=== PATIENT | female | born 1955 | race Caucasian/White ===

== ENCOUNTER 2021-05-02 11:20 | Outpatient (REF) | payer MEDICARE, MEDICAID, SELFPAY ==
[2021-05-02 13:58] LABS: MANUAL DIFF FLAG NO
[2021-05-02 14:01] LABS: Basophils Percent Auto 0.6 % (0-2); Eosinophils Absolute Auto 0.1 X10*3/uL (0.0-0.4); Eosinophils Percent Auto 1.9 % (0-4); Hematocrit 38.4 % (37.0-47.0); Hemoglobin 12.5 g/dl (12.0-16.0); Imm Gran Abs Auto 0.01 X10*3/uL (0.00-0.03); Imm Gran Pct Auto 0.1 % (0.0-0.4); Lymphocytes Absolute Auto 1.3 X10*3/uL (1.2-4.9); Lymphocytes Percent Auto 19.3 % (20-40); Mean Corpuscular HGB Conc 32.6 g/dl (31.0-35.0); Mean Corpuscular Hemoglobin 27.8 pg (27.0-33.0); Mean Corpuscular Volume 85.3 fL (80.0-98.0); Mean Platelet Volume 10.7 fL (9.4-12.3); Monocytes Absolute Auto 0.5 X10*3/uL (0.1-1.2); Monocytes Percent Auto 7.9 % (2-11); Neutrophils Percent Auto 70.2 % (45-73); Platelet Count 345 X10*3/uL (160-400); White Blood Count 6.7 X10*3/uL (4.8-10.8)
[2021-05-02 14:32] LABS: Alanine Aminotransferase 24 U/L (0-31); Albumin Level 3.7 g/dL (3.5-5.0); Alkaline Phosphatase 115 U/L (39-117); Anion Gap 14 (12-20); Aspartate Amino Transferase 26 U/L (5-31); Bilirubin Total 0.6 mg/dL (0.0-1.0); Blood Urea Nitrogen 16 mg/dL (9-16); Calcium 8.8 mg/dL (8.4-10.2); Carbon Dioxide 25 mmol/L (22-29); Chloride 107 mmol/L (96-108); Cholesterol 176 mg/dL; Estimated Glomerular Filt Rate > 60; Glucose Random 96 mg/dL (60-115); HDL Cholesterol 44 mg/dL; LDL Cholesterol Calculated 115 mg/dl; Potassium 4.2 mmol/L (3.3-5.1); Sodium 142 mmol/L (135-145); Total Protein 6.8 g/dL (6.5-8.0); Triglycerides 87 mg/dL
== END 2021-05-02 11:21 | disposition home or self-care (01) ==
LOC: HO.MANLDS 11:20
PROVIDERS: PCP Physician Assistant; Visit Provider Physician Assistant
DX: I25.10 Atherosclerotic heart disease of native coronary artery without angina pectoris (principal)
CPT/HCPCS: 36415; 80053; 80061; 85025

== ENCOUNTER 2022-01-13 10:19 | Outpatient (REF) | payer MEDICARE, MEDICAID, SELFPAY ==
[2022-01-13 11:33] LABS: MANUAL DIFF FLAG NO
[2022-01-13 11:39] LABS: Basophils Percent Auto 0.6 % (0-2); Eosinophils Absolute Auto 0.2 X10*3/uL (0.0-0.4); Eosinophils Percent Auto 3.1 % (0-4); Hematocrit 37.6 % (37.0-47.0); Hemoglobin 12.3 g/dl (12.0-16.0); Imm Gran Abs Auto 0.02 X10*3/uL (0.00-0.03); Imm Gran Pct Auto 0.3 % (0.0-0.4); Lymphocytes Absolute Auto 1.1 X10*3/uL (1.2-4.9); Lymphocytes Percent Auto 15.8 % (20-40); Mean Corpuscular HGB Conc 32.7 g/dl (31.0-35.0); Mean Corpuscular Hemoglobin 27.3 pg (27.0-33.0); Mean Corpuscular Volume 83.6 fL (80.0-98.0); Mean Platelet Volume 10.8 fL (9.4-12.3); Monocytes Absolute Auto 0.7 X10*3/uL (0.1-1.2); Monocytes Percent Auto 9.2 % (2-11); Platelet Count 351 X10*3/uL (160-400); Red Cell Distribution Width 12.6 % (11.0-16.0); White Blood Count 7.1 X10*3/uL (4.8-10.8)
[2022-01-13 11:59] LABS: Alanine Aminotransferase 26 U/L (0-31); Albumin Level 3.7 g/dL (3.5-5.0); Alkaline Phosphatase 114 U/L (39-117); Anion Gap 13 (12-20); Aspartate Amino Transferase 23 U/L (5-31); Bilirubin Total 0.7 mg/dL (0.0-1.0); Blood Urea Nitrogen 14 mg/dL (9-16); Calcium 8.4 mg/dL (8.4-10.2); Carbon Dioxide 26 mmol/L (22-29); Chloride 107 mmol/L (96-108); Estimated Glomerular Filt Rate > 60; Glucose Random 89 mg/dL (60-115); Iron 58 mcg/dL (30-160); Percent Iron Saturation 16 % (15-50); Potassium 4.1 mmol/L (3.3-5.1); Sodium 142 mmol/L (135-145); Total Iron Binding Capacity 354 mcg/dL (228-428); Total Protein 6.9 g/dL (6.5-8.0); Unsaturated Iron Binding 296 ug/dL
[2022-01-13 12:23] LABS: Ferritin 71 ng/mL (10-250); Vitamin D 25-OH Total 10.7 ng/mL (>30)
[2022-01-13 12:37] LABS: Folate 14.5 ng/mL (> or = 4.0); Vitamin B12 441 pg/mL (200-900)
== END 2022-01-13 10:20 | disposition home or self-care (01) ==
LOC: HO.MANLDS 10:19
PROVIDERS: Visit Provider Physician Assistant
DX: R25.2 Cramp and spasm (principal)
CPT/HCPCS: 36415; 80053; 82306; 82550; 82607; 82728; 82746; 83540; 83735; 85025

== ENCOUNTER 2022-12-13 15:38 | Emergency (ER) | payer MEDICARE, MEDICAID, SELFPAY ==
--- NOTE | 2022-12-13 15:44 | ECG_ITS ---
Test Reason : CHEST PAIN Blood Pressure : / mmHG Vent. Rate : 096 BPM Atrial Rate : 096 BPM P-R Int : 166 ms QRS Dur : 070 ms QT Int : 334 ms P-R-T Axes : 063 042 053 degrees QTc Int : 421 ms Normal sinus rhythm Septal infarct , age undetermined Abnormal ECG No previous ECGs available Referred By: Generic ED Physician Electronically Signed By:LEESA DENTON MD
[2022-12-13 16:21] VITALS: BP 126/55; BP 127/72; PULSE 101; PULSE 99; RESP 22; TEMP 36.8; O2SAT 97; O2SAT 98; BMI 28.7
--- NOTE | 2022-12-13 16:55 | ED_ITS ---
HPI - Psych General Chief Complaint: Psychiatric Symptoms Stated Complaint: PSYCH EVAL Time Seen by Provider: 12/13/22 16:45 Source: patient and EMS Mode of arrival: EMS Limitations: no limitations History of Present Illness HPI Narrative: 67-year-old female reside in rehab/SNF patient got aggravated on staff it is not and threatened to hurt herself with plan to stab herself with a knife, patient stated [facility] please is trying to prevent her from going to her private apartment which she does not have. Patient during the interview decline SI or HI, patient also declined AVH. No headache, no photophobia, no blurry vision, no CP, no SOB, no abdominal pain, no nausea, no vomiting. Related Data Home Medications Medication Instructions Recorded Confirmed acetaminophen 500 mg tablet 500 mg PO BEDTIME 12/14/22 12/14/22 (Tylenol Extra Strength) furosemide 40 mg tablet 40 mg PO DAILY 12/14/22 12/14/22 losartan 25 mg tablet 25 mg PO DAILY 12/14/22 12/14/22 melatonin 5 mg tablet 5 mg PO BEDTIME 12/14/22 12/14/22 multivitamin,qq-cpsw-Kw-FA-min 1 tab PO DAILY 12/14/22 12/14/22 nitroglycerin 0.4 mg sublingual 0.4 mg sublingual ONCE PRN Chest 12/14/22 12/14/22 tablet Pain pantoprazole 40 mg tablet,delayed 40 mg PO DAILY 12/14/22 12/14/22 release potassium chloride 20 mEq 20 meq PO DAILY 12/14/22 12/14/22 tablet,extended release(part/cryst) Allergies Allergy/AdvReac Type Severity Reaction Status Date / Time cephalexin Allergy Unknown Verified 02/21/19 00:00 nisoldipine [Sular] Allergy Unknown Verified 02/21/19 00:00 penicillin V Allergy Unknown Verified 02/21/19 00:00 Erythromycin Allergy Unknown Uncoded 02/21/19 00:00 Review of Systems Review of Systems: All other systems are reviewed and are negative Constitutional: Reports as per HPI and Reports no additional constitutional complaints Eyes: Reports as per HPI and Reports no additional eye complaints Reports system reviewed and no additional complaints, except as documented Cardiovascular: Reports as per HPI and Reports no additional cardiovascular complaints Respiratory: Reports as per HPI and Reports no additional respiratory complaints Gastrointestinal: Reports as per HPI and Reports no additional gastrointestinal complaints Genitourinary: Reports no additional female genitourinary complaints Musculoskeletal: Reports no additional musculoskeletal complaints Skin/Breast: Reports system reviewed and no additional complaints, except as docu Psychiatric: Reports no additional psychiatric complaints Endocrine: Reports no additional endocrine complaints Hematologic/Lymphatic: Reports no additional hematologic/lymphatic complaints Allergic/Immunologic: Reports no additional allergic/immunologic complaints Reports system reviewed and no additional complaints, except as documented and Reports Abnormal speech present [facility] Social History Social History Smoked in Last 30 Days: No Use of substances other than those prescribed or required for medical reasons: No Advance Directives: No Advance Directives Information Provided: No Physical Exam Vital Signs: Vital Signs: Last Vital Signs Temp 98.9 F 12/14/22 00:47 Pulse 110 H 12/14/22 00:47 Resp 18 12/14/22 00:47 BP 165/71 H 12/14/22 00:47 Pulse Ox 94 12/14/22 00:47 O2 Del Method Room Air 12/14/22 00:47 BMI result Body Mass Index 28.7 Vital signs have been reviewed as appeared to be correct. Blood pressure normal. Heart rate normal. Respiration rate normal. Temperature normal. Oxygen saturation normal. Appearance: Alert. Oriented X3. No acute distress. Head: Normal external exam. Normocephalic. Atraumatic. No Garcia signs noted. No raccoon eyes noted Eyes: PERRLA. EOMI. Conjunctiva and sclera normal. Eyelids normal. ENT: TM's Normal. Pharynx normal. Uvula midline. Moist mucous membranes. No trismus noted. No drooling noted. No muffled voice noted. Neck: Normal inspection. Neck supple. FROM. No adenopathy. Thyroid Normal. No meningeal signs. No neck mass noted. CVS: Normal heart rate and rhythm. Heart sound normal. No murmurs noted. Pulses normal throughout. Respiratory: No respiratory distress. Painless inspiration. Breath sounds normal. No wheezes/rales/rhonchi noted. Chest nontender. No accessory muscle usage noted or decreased air movement noted. Abdomen: Soft and nontender. Bowel sounds normal in all 4 quadrants. No distention noted. No organomegaly noted. No visible injury noted. Back: No CVA tenderness. Full range of motion noted. Skin: Skin warm and dry. Normal skin color. Normal skin turgor. No rashes/lesions/lacerations noted. Extremities: No lower extremity edema. Extremities exhibit normal range of motion. Extremities nontender. Neuro: Oriented X 3. Cranial nerve exam: II-XII are grossly intact No motor deficit. No sensory deficit. Reflexes normal. Patient Orientation: Person, Place, Time and Situation, okay hygiene and grooming. Fair eye contact, attentive, no tics or tremors. Level of Consciousness: Awake, Appropriate and Alert Patient Behavior: Appropriate, Guarded, Cooperative and Anxious Mood Description: Constricted, Blunted and Apprehensive Affect Description: Constricted, Blunted and Apprehensive Patient Cognition Impaired: No Ability to Follow Directions: Excellent Speech Pattern: Clear, Appropriate and Spontaneous Speech, nonpressured, spontaneous with regular rate and rhythm, normal volume and prosody. No dysarthria. Memory Description: Intact, Immediate Intact and Short Term Intact Hallucinations: None Delusions: Not Present Thought Process: Intact Thought Content: positive for Intact, positive for Logical, denies Suicidal Ideation and denies Homicidal Ideation. Depressive Symptoms: Not present. Judgement and Insight: Limited but adequate. Medical Decision Making Differential Diagnosis Differential Diagnoses: The differential diagnosis associated with the presentation includes (Acute psychosis, acute anxiety, electrolyte abnormality, severe anemia.) Admission/Observation Consideration of admission/observation: Escalation of care including admission/observation considered Lab Data MDM Lab Attestation statement: I reviewed the patient's lab results. 12/13/22 17:08 12/13/22 17:08 Labs: Lab Results 12/13/22 12/13/22 12/13/22 Range/Units 17:08 17:08 17:08 WBC 8.9 (4.8-10.8) X10*3/uL RBC 3.93 L (4.20-5.50) X10*6/uL Hgb 11.2 L (12.0-16.0) g/dl Hct 33.6 L (37.0-47.0) % MCV 85.5 (80.0-98.0) fL MCH 28.5 (27.0-33.0) pg MCHC 33.3 (31.0-35.0) g/dl RDW 13.0 (11.0-16.0) % Plt Count 339 (160-400) X10*3/uL MPV 10.0 (9.4-12.3) fL Immature Gran % (Auto) 0.2 (0.0-0.4) % Neut % (Auto) 71.2 (45-73) % Lymph % (Auto) 20.0 (20-40) % [place] % (Auto) 7.1 (2-11) % Eos % (Auto) 1.0 (0-4) % Baso % (Auto) 0.5 (0-2) % Lymph # (Auto) 1.8 (1.2-4.9) X10*3/uL [place] # (Auto) 0.6 (0.1-1.2) X10*3/uL Eos # (Auto) 0.1 (0.0-0.4) X10*3/uL Baso # (Auto) 0.0 (0.0-0.2) X10*3/uL Abs Immat Gran (auto) 0.02 (0.00-0.03) X10*3/uL Absolute Neuts (auto) 6.3 (2.0-8.3) x10*3/uL Absolute Nucleated RBC 0.000 (0.0-0.012) X10*3/uL Nucleated RBC % (auto) 0.0 (0.0-0.2) /100WBC Sodium 144 (135-145) mmol/L Potassium 4.3 (3.3-5.1) mmol/L Chloride 108 (96-108) mmol/L Carbon Dioxide 28 (22-29) mmol/L Anion Gap 12 (12-20) BUN 17 H (9-16) mg/dL Creatinine 0.52 (0.5-1.4) mg/dL Estim Creat Clear Calc 94.3 Estimated GFR > 60 Random Glucose 105 (60-115) mg/dL Calcium 9.5 D (8.4-10.2) mg/dL Total Bilirubin 0.7 (0.0-1.0) mg/dL Direct Bilirubin 0.2 (0.0-0.5) mg/dL AST 22 (5-31) U/L ALT 15 (0-31) U/L Alkaline Phosphatase 89 (39-117) U/L Troponin I High Sens 12.0 (<3.5-17.0) ng/L Total Protein 6.9 (6.5-8.0) g/dL Albumin 3.7 (3.5-5.0) g/dL Lipase 15 (8-78) U/L Urine Color Urine Appearance Urine pH (5.0-9.0) Ur Specific [place] (1.005-1.025) Urine Protein (Neg-Trace) mg/dL Urine Glucose (UA) (Negative) mg/dL Urine Ketones (Negative) mg/dL Urine Blood (Negative) Urine Nitrite (Negative) Ur Leukocyte Esterase (Negative) Urine RBC (0-2) /HPF Urine WBC (0-5) /HPF Ur Squamous Epith Cells (0-2) /HPF Urine Bacteria (None Seen) Hyaline Casts (0-2) /LPF Urine Opiates Screen (Not Detect) Urine Fentanyl Screen (Not Detect) Ur Barbiturates Screen (Not Detect) Ur Phencyclidine Scrn (Not Detect) Ur Amphetamines Screen (Not Detect) U Benzodiazepines Scrn (Not Detect) Urine Cocaine Screen (Not Detect) U Marijuana (THC) Screen (Not Detect) 12/13/22 12/13/22 Range/Units 17:08 17:08 WBC (4.8-10.8) X10*3/uL RBC (4.20-5.50) X10*6/uL Hgb (12.0-16.0) g/dl Hct (37.0-47.0) % MCV (80.0-98.0) fL MCH (27.0-33.0) pg MCHC (31.0-35.0) g/dl RDW (11.0-16.0) % Plt Count (160-400) X10*3/uL MPV (9.4-12.3) fL Immature Gran % (Auto) (0.0-0.4) % Neut % (Auto) (45-73) % Lymph % (Auto) (20-40) % [place] % (Auto) (2-11) % Eos % (Auto) (0-4) % Baso % (Auto) (0-2) % Lymph # (Auto) (1.2-4.9) X10*3/uL [place] # (Auto) (0.1-1.2) X10*3/uL Eos # (Auto) (0.0-0.4) X10*3/uL Baso # (Auto) (0.0-0.2) X10*3/uL Abs Immat Gran (auto) (0.00-0.03) X10*3/uL Absolute Neuts (auto) (2.0-8.3) x10*3/uL Absolute Nucleated RBC (0.0-0.012) X10*3/uL Nucleated RBC % (auto) (0.0-0.2) /100WBC Sodium (135-145) mmol/L Potassium (3.3-5.1) mmol/L Chloride (96-108) mmol/L Carbon Dioxide (22-29) mmol/L Anion Gap (12-20) BUN (9-16) mg/dL Creatinine (0.5-1.4) mg/dL Estim Creat Clear Calc Estimated GFR Random Glucose (60-115) mg/dL Calcium (8.4-10.2) mg/dL Total Bilirubin (0.0-1.0) mg/dL Direct Bilirubin (0.0-0.5) mg/dL AST (5-31) U/L ALT (0-31) U/L Alkaline Phosphatase (39-117) U/L Troponin I High Sens (<3.5-17.0) ng/L Total Protein (6.5-8.0) g/dL Albumin (3.5-5.0) g/dL Lipase (8-78) U/L Urine Color Yellow Urine Appearance Clear Urine pH 6.5 (5.0-9.0) Ur Specific [place] 1.015 (1.005-1.025) Urine Protein Negative (Neg-Trace) mg/dL Urine Glucose (UA) Negative (Negative) mg/dL Urine Ketones Negative (Negative) mg/dL Urine Blood Negative (Negative) Urine Nitrite Negative (Negative) Ur Leukocyte Esterase Small (1+) H (Negative) Urine RBC 0-2 (0-2) /HPF Urine WBC 0-5 (0-5) /HPF Ur Squamous Epith Cells 0-2 (0-2) /HPF Urine Bacteria Trace (None Seen) Hyaline Casts 0-2 (0-2) /LPF Urine Opiates Screen Not Detected (Not Detect) Urine Fentanyl Screen Not Detected (Not Detect) Ur Barbiturates Screen Not Detected (Not Detect) Ur Phencyclidine Scrn Not Detected (Not Detect) Ur Amphetamines Screen Not Detected (Not Detect) U Benzodiazepines Scrn Not Detected (Not Detect) Urine Cocaine Screen Not Detected (Not Detect) U Marijuana (THC) Screen Not Detected (Not Detect) Discharge Plan Discharge Clinical Impression: Acute anxiety Patient Disposition: Still a Patient Prescriptions: No Action furosemide 40 mg Tablet 40 mg PO DAILY losartan 25 mg Tablet 25 mg PO DAILY pantoprazole 40 mg Tablet,Delayed Release (Dr/Ec) 40 mg PO DAILY potassium chloride 20 mEq Tablet,Er Particles/Crystals 20 meq PO DAILY acetaminophen [Tylenol Extra Strength] 500 mg Tablet 500 mg PO BEDTIME melatonin 5 mg Tablet 5 mg PO BEDTIME Multivitamin And Mineral Tablet 1 tab PO DAILY nitroglycerin 0.4 mg Tablet, Sublingual 0.4 mg SUBLINGUAL ONCE PRN (Reason: Chest Pain) Rx Instructions: Administered once, No relief, call 911 Interventions: Jewell-Suicide Risk Severity Scale Last Done: 12/13/22 16:30
[2022-12-13 17:15] LABS: MANUAL DIFF FLAG NO
[2022-12-13 17:17] LABS: Basophils Percent Auto 0.5 % (0-2); Eosinophils Absolute Auto 0.1 X10*3/uL (0.0-0.4); Hematocrit 33.6 % (37.0-47.0); Hemoglobin 11.2 g/dl (12.0-16.0); Imm Gran Abs Auto 0.02 X10*3/uL (0.00-0.03); Imm Gran Pct Auto 0.2 % (0.0-0.4); Lymphocytes Absolute Auto 1.8 X10*3/uL (1.2-4.9); Mean Corpuscular HGB Conc 33.3 g/dl (31.0-35.0); Mean Corpuscular Hemoglobin 28.5 pg (27.0-33.0); Mean Corpuscular Volume 85.5 fL (80.0-98.0); Monocytes Absolute Auto 0.6 X10*3/uL (0.1-1.2); Monocytes Percent Auto 7.1 % (2-11); Neutrophils Absolute Auto 6.3 x10*3/uL (2.0-8.3); Neutrophils Percent Auto 71.2 % (45-73); Platelet Count 339 X10*3/uL (160-400); Red Blood Count 3.93 X10*6/uL (4.20-5.50); White Blood Count 8.9 X10*3/uL (4.8-10.8)
[2022-12-13 17:18] LABS: Appearance Urine Clear; Color Urine Yellow; Glucose Urine UA Negative (Negative); Leukocyte Esterase Urine Small (1+) (Negative); Nitrite Urine Negative (Negative); PH 6.5 (5.0-9.0); Specific Gravity - Urine 1.015 (1.005-1.025); UMIC TRIGGER UACC YES; Urine Blood Negative (Negative); Urine Ketones Negative (Negative); Urine Protein Negative (Neg-Trace)
[2022-12-13 17:31] LABS: Alanine Aminotransferase 15 U/L (0-31); Albumin Level 3.7 g/dL (3.5-5.0); Alkaline Phosphatase 89 U/L (39-117); Anion Gap 12 (12-20); Aspartate Amino Transferase 22 U/L (5-31); Bilirubin Direct 0.2 mg/dL (0.0-0.5); Bilirubin Total 0.7 mg/dL (0.0-1.0); Blood Urea Nitrogen 17 mg/dL (9-16); Calcium 9.5 mg/dL (8.4-10.2); Carbon Dioxide 28 mmol/L (22-29); Chloride 108 mmol/L (96-108); Creatinine Clr Calc Pharmacy 94.3; Estimated Glomerular Filt Rate > 60; Glucose Random 105 mg/dL (60-115); Lipase 15 U/L (8-78); Potassium 4.3 mmol/L (3.3-5.1); Sodium 144 mmol/L (135-145); Total Protein 6.9 g/dL (6.5-8.0)
[2022-12-13 17:33] LABS: Bacteria Urine Trace (None Seen); Hyaline Casts Urine 0-2 /LPF (0-2); RBC Urine 0-2 /HPF (0-2); Squamous Epithelial Cell Urine 0-2 /HPF (0-2); UACC Culture Trigger YES; WBC Urine 0-5 /HPF (0-5)
[2022-12-13 18:54] LABS: Amphetamine Screen Urine Not Detected (Not Detect); Barbiturates, Urine Not Detected (Not Detect); Benzodiazepines Screen Urine Not Detected (Not Detect); Cannabinoid Screen Urine Not Detected (Not Detect); Cocaine Screen Urine Not Detected (Not Detect); Fentanyl, urine Not Detected (Not Detect); Opiate Screen Urine Not Detected (Not Detect); Phencyclidine Screen Urine Not Detected (Not Detect)
[2022-12-13 19:05] VITALS: BP 131/50; PULSE 96; RESP 20; TEMP 37.1; O2SAT 94
[2022-12-13 21:05] VITALS: BP 142/52; PULSE 104; RESP 18; TEMP 36.9; O2SAT 93
[2022-12-13 22:15] VITALS: BP 123/46; PULSE 108; RESP 27; TEMP 37.3; O2SAT 93
[2022-12-14 00:47] VITALS: BP 165/71; PULSE 110; RESP 18; TEMP 37.2; O2SAT 94
--- NOTE | 2022-12-14 05:30 | PC.NURSE ---
Patient slept for an hour, offered medication for sleep refused by stating she doesn't take any medication to help sleep, although patient has independent ambulation but due to edematous leg supervision is needed, patient is DNR/DNI, med rec completed/needs pharmacy review and provider's approval, behavior non concerning and thought process coherent, VSS, will continue to monitor.
--- NOTE | 2022-12-14 07:18 | MHC.EDTECH ---
pt refused breakfast this morning, rn aware
--- NOTE | 2022-12-14 07:28 | PHA.MEDREC ---
Pharmacy Consult ? Medication Reconciliation Pharmacy has reviewed the medication reconciliation.
[2022-12-14 09:04] VITALS: BP 127/61; PULSE 92; RESP 12; TEMP 37.3; O2SAT 97
[2022-12-14] MEDS: Losartan Potassium 25 MG TABLET PO (09:09)
[2022-12-14] MEDS: Multivitamin TABLET 1 TAB PO (09:09)
[2022-12-14] MEDS: Furosemide 40 MG TABLET PO (09:09)
[2022-12-14] MEDS: Potassium Chloride ER 20 MEQ TAB.ER.PRT PO (09:09)
--- NOTE | 2022-12-14 10:27 | MHC.EDTECH ---
a two-wheel walker was given to the patient after stating she would feel more comfortable ambulating with one because that is what the pt uses at home. rn aware. pt is comfortable and ambulating well with walker.
--- NOTE | 2022-12-14 12:22 | PC.NURSE ---
pt calm and cooperative, reporting that she wants to leave bus does not want to go back to the SNF she came from. pt perseverative about when the CARE team is going to come tell her the plan. pt educated on process being lengthy and that at this time they were meeting with the psychiatrist to determine a plan. informed pt that she will be made aware of plan shortly. pt irritable when other staff go into CARE team office they are disrupting them, its going to take longer now . pt redirected from this thought process.
--- NOTE | 2022-12-14 13:00 | MHC.EDTECH ---
pt refused lunch at this time reasoning being, I want to lose weight , rn aware
--- NOTE | 2022-12-14 13:19 | MHC.EDTECH ---
after explaining to the pt that the lunch tray was hers and not my lunch tray, the pt is now eating her lunch comfortably in the milieu
--- NOTE | 2022-12-14 14:04 | PC.NURSE ---
Pt. was seen in pod of ED for a MOCA administration. Pt. was seated in the day room, A&Ox4, and affect was anxious and irritable but cooperative. Pt. scored a 20/30 on the MOCA, indicating a moderate cognitive impairment. Difficulties included placement of hands on the clock, 5-word recall, serial 7s, and listing words within 60 seconds. IDed 0/5 recall words but recalled 2 with category cues and remaining 3 with multiple choice cues. Further cognitive assessment recommended at this time.
--- NOTE | 2022-12-14 14:46 | PM.PSYCN ---
History of Present Illness Date of Service: 12/14/2022 Chief Complaint: PSYCH EVAL Reason for Consult: capacity Discussed with referring provider: Yes Sources of Information: patient interviewed, chart reviewed and crisis/core team assessment reviewed HPI Narrative: Mrs. Mccullough is a 67 year-old woman who was brought via EMS from [facility] where she has been staying since May of last year initially for rehab after covid. At the time her apartment was condemned. [facility] has been working on referrals for ROSITA. In the ED, utox is negative. Pt medically cleared. Pt seen in ED. Pt reports she has been at [facility] since May. She states she is not sure why she was sent there. She states some people said I have covid others say I didn't have it when I went there. Pt reports she was expecting [facility] to find her placement. She reports she does not think they have helped her. She reports her brother in law was helping her with getting an apartment but states her sister told her they can't help her. She reports her plan is to walk to [place] from [place] [facility] because she has heard they can help with housing. When asked if she knows how far is [place] from here, pt states it's close. This radio news writer showed her a google maps and distance of 3.5hrs walking. Pt states she can walk that distance with her walker. She also reports she can find hotel. Pt does not seem as concern in terms of her plan for housing as others. Pt also reports she only has slippers, but thinks she can walk with them. Pt denies SI/HI. No overt psychosis or delusions. Maybe some suspiciousness towards staff at [facility] and sister but no overt delusions. MOCA was completed today- score 20/30 with difficulties in executive function in sense that pt was not able to place hands of clock, attention, recall (0/5), language fluency. Note that her orientation is intact, but higher cognitive function shows more impaired. Diagnostics Vital Signs (24Hr): Vital Signs - 24 hr 12/13/22 16:21 12/13/22 19:05 12/13/22 21:05 Temperature 98.3 F 98.7 F 98.5 F Pulse Rate 99 96 104 H Respiratory Rate 22 H 20 18 Blood Pressure 126/55 L 131/50 L 142/52 H Pulse Oximetry 97 94 93 Oxygen Delivery Method Room Air Room Air Room Air 12/13/22 22:15 12/14/22 00:47 12/14/22 09:04 Temperature 99.1 F 98.9 F 99.2 F Pulse Rate 108 H 110 H 92 Respiratory Rate 27 H 18 12 Blood Pressure 123/46 L 165/71 H 127/61 Pulse Oximetry 93 94 97 Oxygen Delivery Method Room Air Room Air Room Air BMI result Body Mass Index 28.7 Labs 12/13/22 17:08 12/13/22 17:08 Labs: Laboratory Results - last 48 hr 12/13/22 12/13/22 12/13/22 17:08 17:08 17:08 WBC 8.9 RBC 3.93 L Hgb 11.2 L Hct 33.6 L MCV 85.5 MCH 28.5 MCHC 33.3 RDW 13.0 Plt Count 339 MPV 10.0 Immature Gran % (Auto) 0.2 Neut % (Auto) 71.2 Lymph % (Auto) 20.0 [place] % (Auto) 7.1 Eos % (Auto) 1.0 Baso % (Auto) 0.5 Lymph # (Auto) 1.8 [place] # (Auto) 0.6 Eos # (Auto) 0.1 Baso # (Auto) 0.0 Abs Immat Gran (auto) 0.02 Absolute Neuts (auto) 6.3 Absolute Nucleated RBC 0.000 Nucleated RBC % (auto) 0.0 Sodium 144 Potassium 4.3 Chloride 108 Carbon Dioxide 28 Anion Gap 12 BUN 17 H Creatinine 0.52 Estim Creat Clear Calc 94.3 Estimated GFR > 60 Random Glucose 105 Calcium 9.5 D Total Bilirubin 0.7 Direct Bilirubin 0.2 AST 22 ALT 15 Alkaline Phosphatase 89 Troponin I High Sens 12.0 Total Protein 6.9 Albumin 3.7 Lipase 15 Urine Color Urine Appearance Urine pH Ur Specific [place] Urine Protein Urine Glucose (UA) Urine Ketones Urine Blood Urine Nitrite Ur Leukocyte Esterase Urine RBC Urine WBC Ur Squamous Epith Cells Urine Bacteria Hyaline Casts Urine Opiates Screen Urine Fentanyl Screen Ur Barbiturates Screen Ur Phencyclidine Scrn Ur Amphetamines Screen U Benzodiazepines Scrn Urine Cocaine Screen U Marijuana (THC) Screen 12/13/22 12/13/22 17:08 17:08 WBC RBC Hgb Hct MCV MCH MCHC RDW Plt Count MPV Immature Gran % (Auto) Neut % (Auto) Lymph % (Auto) [place] % (Auto) Eos % (Auto) Baso % (Auto) Lymph # (Auto) [place] # (Auto) Eos # (Auto) Baso # (Auto) Abs Immat Gran (auto) Absolute Neuts (auto) Absolute Nucleated RBC Nucleated RBC % (auto) Sodium Potassium Chloride Carbon Dioxide Anion Gap BUN Creatinine Estim Creat Clear Calc Estimated GFR Random Glucose Calcium Total Bilirubin Direct Bilirubin AST ALT Alkaline Phosphatase Troponin I High Sens Total Protein Albumin Lipase Urine Color Yellow Urine Appearance Clear Urine pH 6.5 Ur Specific [place] 1.015 Urine Protein Negative Urine Glucose (UA) Negative Urine Ketones Negative Urine Blood Negative Urine Nitrite Negative Ur Leukocyte Esterase Small (1+) H Urine RBC 0-2 Urine WBC 0-5 Ur Squamous Epith Cells 0-2 Urine Bacteria Trace Hyaline Casts 0-2 Urine Opiates Screen Not Detected Urine Fentanyl Screen Not Detected Ur Barbiturates Screen Not Detected Ur Phencyclidine Scrn Not Detected Ur Amphetamines Screen Not Detected U Benzodiazepines Scrn Not Detected Urine Cocaine Screen Not Detected U Marijuana (THC) Screen Not Detected Mental Status Exam Mental Status Exam Narrative: Appearance: wearing hospital gown, ambulating with walker, in NAD Behavior: cooperative Psychomotor: no agitation or retardation noted Speech: clear, normal rate/rhythm/volume, spontaneous TP: goal oriented TC:wanting to leave hospital, walking to [place] from hospital Mood: okay Affect: congruent SI: denies HI: denies VH/AH: denies, does not appear internally preoccupied Delusions: some suspiciousness, but no overt delusional content noted or reported Insight/judgment: impaired x 2 Memory/cog: alert, oriented x 4. MOCA was completed today- score 20/30 with difficulties in executive function in sense that pt was not able to place hands of clock, attention, recall (0/5), language fluency. Note that her orientation is intact, but higher cognitive function shows more impaired. Medications Medications Current Medications Acetaminophen (Acetaminophen 325 Mg Tablet) 650 mg PO BEDTIME RONNIE Furosemide (Furosemide 40 Mg Tablet) 40 mg PO DAILY RONNIE; Protocol Last Admin: 12/14/22 09:09 Dose: 40 mg Losartan Potassium (Losartan Potassium 25 Mg Tablet) 25 mg PO DAILY RONNIE; Protocol Last Admin: 12/14/22 09:09 Dose: 25 mg Melatonin (Melatonin 3 Mg Tablet) 6 mg PO BEDTIME [facility] Multivitamins/Vitamin C (Multivitamin Tablet) 1 tab PO DAILY [facility] Last Admin: 12/14/22 09:09 Dose: 1 tab Nitroglycerin (Nitroglycerin 0.4 Mg Tab.Subl) 0.4 mg SUBLINGUAL ONCE PRN PRN Reason: Chest Pain Omeprazole (Omeprazole 20 Mg Capsule.Dr) 20 mg PO DAILY@0630 [facility] Pharmacy Consult (Consult Rx Perform Med Rec) 1 each MISCELLANE ONCE PRN PRN Reason: Consult order Potassium Chloride (Potassium Chloride Er 20 Meq Tab.Er.Prt) 20 meq PO DAILY [facility] Last Admin: 12/14/22 09:09 Dose: 20 meq Allergies Allergies Allergy/AdvReac Type Severity Reaction Status Date / Time cephalexin Allergy Unknown Verified 02/21/19 00:00 nisoldipine [Sular] Allergy Unknown Verified 02/21/19 00:00 penicillin V Allergy Unknown Verified 02/21/19 00:00 Erythromycin Allergy Unknown Uncoded 02/21/19 00:00 Assessment & Plan Assessment & Plan (1) Cognitive impairment: Status: Acute Code(s): R41.89 - Other symptoms and signs involving cognitive functions and awareness Plan Mrs. Mccullough is a 67 year-old woman brought from [facility] due to pt expressing suicidal ideation in context of wanting to leave facility without alternative plan for housing. Pt initially assessed for suicidal ideation which pt has declined and does not appear at imminent harm to self due to suicidality. However, pt presents with concern in terms of her ability to make decisions and care for herself. MOCA was completed today- score 20/30 with difficulties in executive function in sense that pt was not able to place hands of clock, attention, recall (0/5), language fluency. Note that her orientation is intact, but higher cognitive function shows more impairment (ability to plan, coordinate, problem solving). Pt does not appear to anticipate danger of walking, without knowing how to get from hospital to [place] with walker and slippers. Pt does not show appropriate problem solving should she is not able to find place to stay by showing to senior [facility] in [place]. She is not able to express understanding as to why she was sent to [facility] in the first place. And suspect that if patient was as cognitively intact as she thinks she is, she would have been able to secure housing in several months she has been at [facility]. PLAN 1. No acute psychiatric symptoms requiring inpatient psych level of care 2. Pt does show impairment in higher cognitive function such as plan, coordinate, anticipate dangerous situation, problem solving which pt her at risk of harm. Her recall is poor and this affects her perception of no one is doing anything for her as details as far as efforts to place her she may not remember. She overestimates her ability to care for herself and live independently. She is not able to show understanding as to why she was send to this facility in the first place and fact that her apartment had been condemned prior to going to this facility. On the surface, she appears as much more functional as her orientation is intact and she able to relay superficial information about her current living situation and plans but as more questions are asked she is not able to elaborate further. Total time managing care of this patient today __30__ minutes.
--- NOTE | 2022-12-14 18:08 | MHC.CM.ED ---
Addendum entered by May Gilmore 12/14/22 18:52: Per Patricia CARE TEAM, patient has escalating behaviors and has requested D/C be placed on hold. States patient may need further psych evaluation. BLS placed on hold and facility notified via Care Port. Addendum entered by May Gilmore 12/14/22 18:36: Per Gillian MAP AND CHART MOUNTER, patient does not have capacity to make medical decisions. Pt does have HCP. Original Note: CM received consult as patient has been cleared by psych, with hx SI statements. SEE psych consult. Per psych, patient has impaired higher cognitive functioning, poor executive functioning, reasoning, decision making, and lack of safety awareness. Pt has been cleared for discharge to return to [facility]. [place] text to Gillian CAMPOS regarding patient capacity to make medical decisions. Pt has been at [facility] since May of 2022. Facility is working on alternative living situation for this patient. [facility] is willing to have patient return. Pt is not happy about returning, but has no viable plan to live anywhere else. HCP/son Stephan Galdamez ([phone]) has little contact with his mother and the relationship is very strained. Pt in 2018. CM encouraged patient to work with manager social services at facility to find another place to live. Facility aware of patient's return. Requested patient return in the morning. BLS booked for 9am. Psych consult uploaded to facility. Paperwork to unit nurse. CM will follow for any discharge needs.
--- NOTE | 2022-12-14 18:10 | PC.NURSE ---
pt refusing dinner at this time, reports she going on a hunger strike, not going to eat anything ever again . pt reported that will show those bitches, I'll tell them, I'm not eating because of you . pt tearful, visible irritable regarding having to go back to [facility]
--- NOTE | 2022-12-14 18:16 | PC.NURSE ---
pt approached t/w you can tell them, tell everyone that I'm not taking a single medication again. I hope that [place] nurse comes to me and tells me that I'm not taking my medicine because she thinks I'm trying to kill myself. You know what I'll tell her, you can shove those meds up your ass! pt also reporting she is going to attempt to elope from the facility and walk to [place].
--- NOTE | 2022-12-14 18:42 | MHC.CARE ---
T/w attempted to speak with patient about the trajectory of events that will occur if she returns to the short term rehab and refuses to eat, refuses medication and attempts elopement. t/w informed her that she will likely end up back in this same ED for unsafe behavior, poor judgment. Patient made statements that if she cannot get a cab once she is returned to the short term rehab she will hitchhike. She will leave that facility by any means. When this pattern chart writer explains how unsafe that is she goes on to explain how she often hitchhiked when she was an adolescent. Patient rolled her eyes when told that many decades have passed since then and hitch hiking is far less safe now. 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 Though goes on to state her brother in law took it from her. She additionally seems intensely focused on the [facility] in [place] and had to be told twice she cannot sleep there, neither via sneaking in nor with permission. She also reports that there is another nursing facility across the street from the one she stays at currently and she believes she can just go over and change residences, stating she knows all the CNAs. She rolls her eyes at this pattern chart writer when it is explained that this is not realistic or how the process works. See additional nursing notes. Per Patricia See, patient to be seen for [facility] tomorrow.
[2022-12-14] MEDS: Acetaminophen 325 MG TABLET 650 MG PO (20:43)
[2022-12-14] MEDS: Melatonin 3 MG TABLET 6 MG PO (20:43)
--- NOTE | 2022-12-14 23:50 | PC.NURSE ---
Patient is currently in bed appears sleeping, no distress observed/reported, plan per care team is D/C back to SNF tomorrow (12/15/22) @ 0900, medication compliant, ambulates steady with walker, no behavior concerns at this time, patient reported multiple times that she doesn't want to go back to her facility, VSS, will continue to monitor.
[2022-12-15 05:26] VITALS: BP 149/70; PULSE 95; RESP 18; TEMP 36.5; O2SAT 96
[2022-12-15] MEDS: Omeprazole 20 MG CAPSULE.DR PO (06:06)
--- NOTE | 2022-12-15 09:12 | MHC.EDTECH ---
pt refused breakfast this AM, no reason was given, rn aware
--- NOTE | 2022-12-15 09:20 | PC.NURSE ---
Patient first refused medication but after given time to think she reconsidered and decided to take meds.
[2022-12-15 09:21] VITALS: BP 159/64; PULSE 94; RESP 14; TEMP 36.7; O2SAT 97
[2022-12-15] MEDS: Furosemide 40 MG TABLET PO (09:24)
[2022-12-15] MEDS: Multivitamin TABLET 1 TAB PO (09:24)
[2022-12-15] MEDS: Potassium Chloride ER 20 MEQ TAB.ER.PRT PO (09:24)
[2022-12-15] MEDS: Losartan Potassium 25 MG TABLET PO (09:24)
--- NOTE | 2022-12-15 11:54 | HO.PSYCHPN ---
Subjective Subjective Date of Service: 12/15/22 Reason For Visit: PSYCH EVAL Interim History: f/u from psych consult on 12/14 met with patient; discussed case w/ care team; reviewed chart PT demonstrating cognitive impairment making her unsafe for discharge. Pt is unable to take care of herself in the community and she refuses to return to her Rehab facility ([facility]); she says if sent there, she will elope. Patient says she will now refuse all meds (though did take meds today with much encouragement) and will refuse to eat or drink (which she has refused today). patient recently made suicidal comment initiating being brought to ED. addition to above, patient says she will now refuse all meds (though did take meds today) and will refuse to eat or drink. She says if she's sent back to [facility], she will elope. Also, patient recently made suicidal comment initiating being brought to ED. Though she denies SI now, she is demonstrating an inability to keep herself safe in the community. Diagnostics Vital Signs (24Hr): Vital Signs - 24 hr 12/15/22 05:26 12/15/22 09:21 Temperature 97.7 F 98.0 F Pulse Rate 95 94 Respiratory Rate 18 14 Blood Pressure 149/70 H 159/64 H Pulse Oximetry 96 97 Oxygen Delivery Method Room Air Room Air BMI result Body Mass Index 28.7 Labs 12/13/22 17:08 12/13/22 17:08 Labs: Laboratory Results - last 48 hr 12/13/22 12/13/22 12/13/22 17:08 17:08 17:08 WBC 8.9 RBC 3.93 L Hgb 11.2 L Hct 33.6 L MCV 85.5 MCH 28.5 MCHC 33.3 RDW 13.0 Plt Count 339 MPV 10.0 Immature Gran % (Auto) 0.2 Neut % (Auto) 71.2 Lymph % (Auto) 20.0 [place] % (Auto) 7.1 Eos % (Auto) 1.0 Baso % (Auto) 0.5 Lymph # (Auto) 1.8 [place] # (Auto) 0.6 Eos # (Auto) 0.1 Baso # (Auto) 0.0 Abs Immat Gran (auto) 0.02 Absolute Neuts (auto) 6.3 Absolute Nucleated RBC 0.000 Nucleated RBC % (auto) 0.0 Sodium 144 Potassium 4.3 Chloride 108 Carbon Dioxide 28 Anion Gap 12 BUN 17 H Creatinine 0.52 Estim Creat Clear Calc 94.3 Estimated GFR > 60 Random Glucose 105 Calcium 9.5 D Total Bilirubin 0.7 Direct Bilirubin 0.2 AST 22 ALT 15 Alkaline Phosphatase 89 Troponin I High Sens 12.0 Total Protein 6.9 Albumin 3.7 Lipase 15 Urine Color Urine Appearance Urine pH Ur Specific [place] Urine Protein Urine Glucose (UA) Urine Ketones Urine Blood Urine Nitrite Ur Leukocyte Esterase Urine RBC Urine WBC Ur Squamous Epith Cells Urine Bacteria Hyaline Casts Urine Opiates Screen Urine Fentanyl Screen Ur Barbiturates Screen Ur Phencyclidine Scrn Ur Amphetamines Screen U Benzodiazepines Scrn Urine Cocaine Screen U Marijuana (THC) Screen 12/13/22 12/13/22 17:08 17:08 WBC RBC Hgb Hct MCV MCH MCHC RDW Plt Count MPV Immature Gran % (Auto) Neut % (Auto) Lymph % (Auto) [place] % (Auto) Eos % (Auto) Baso % (Auto) Lymph # (Auto) [place] # (Auto) Eos # (Auto) Baso # (Auto) Abs Immat Gran (auto) Absolute Neuts (auto) Absolute Nucleated RBC Nucleated RBC % (auto) Sodium Potassium Chloride Carbon Dioxide Anion Gap BUN Creatinine Estim Creat Clear Calc Estimated GFR Random Glucose Calcium Total Bilirubin Direct Bilirubin AST ALT Alkaline Phosphatase Troponin I High Sens Total Protein Albumin Lipase Urine Color Yellow Urine Appearance Clear Urine pH 6.5 Ur Specific [place] 1.015 Urine Protein Negative Urine Glucose (UA) Negative Urine Ketones Negative Urine Blood Negative Urine Nitrite Negative Ur Leukocyte Esterase Small (1+) H Urine RBC 0-2 Urine WBC 0-5 Ur Squamous Epith Cells 0-2 Urine Bacteria Trace Hyaline Casts 0-2 Urine Opiates Screen Not Detected Urine Fentanyl Screen Not Detected Ur Barbiturates Screen Not Detected Ur Phencyclidine Scrn Not Detected Ur Amphetamines Screen Not Detected U Benzodiazepines Scrn Not Detected Urine Cocaine Screen Not Detected U Marijuana (THC) Screen Not Detected Medications Medications Current Medications Acetaminophen (Acetaminophen 325 Mg Tablet) 650 mg PO BEDTIME RONNIE Last Admin: 12/14/22 20:43 Dose: 650 mg Furosemide (Furosemide 40 Mg Tablet) 40 mg PO DAILY RONNIE; Protocol Last Admin: 12/15/22 09:24 Dose: 40 mg Losartan Potassium (Losartan Potassium 25 Mg Tablet) 25 mg PO DAILY RONNIE; Protocol Last Admin: 12/15/22 09:24 Dose: 25 mg Melatonin (Melatonin 3 Mg Tablet) 6 mg PO BEDTIME [facility], [facility] Last Admin: 12/14/22 20:43 Dose: 6 mg Multivitamins/Vitamin C (Multivitamin Tablet) 1 tab PO DAILY [facility], [facility] Last Admin: 12/15/22 09:24 Dose: 1 tab Nitroglycerin (Nitroglycerin 0.4 Mg Tab.Subl) 0.4 mg SUBLINGUAL ONCE PRN PRN Reason: Chest Pain Omeprazole (Omeprazole 20 Mg Capsule.Dr) 20 mg PO DAILY@0630 [facility], [facility] Last Admin: 12/15/22 06:06 Dose: 20 mg Pharmacy Consult (Consult Rx Perform Med Rec) 1 each MISCELLANE ONCE PRN PRN Reason: Consult order Potassium Chloride (Potassium Chloride Er 20 Meq Tab.Er.Prt) 20 meq PO DAILY [facility], [facility] Last Admin: 12/15/22 09:24 Dose: 20 meq Allergies Allergies Allergy/AdvReac Type Severity Reaction Status Date / Time cephalexin Allergy Unknown Verified 02/21/19 00:00 nisoldipine [Sular] Allergy Unknown Verified 02/21/19 00:00 penicillin V Allergy Unknown Verified 02/21/19 00:00 Erythromycin Allergy Unknown Uncoded 02/21/19 00:00 Assessment & Plan Assessment & Plan (1) Cognitive impairment: Status: Acute Code(s): R41.89 - Other symptoms and signs involving cognitive functions and awareness Plan Mrs. Mccullough is a 67 year-old woman [facility] due to pt expressing suicidal ideation in context of wanting to leave facility without alternative plan for housing. Pt initially assessed for suicidal ideation which pt has declined and does not appear at imminent harm to self due to suicidality. However, pt presents with concern in terms of her ability to make decisions and care for herself. MOCA was completed today- score 20/30 with difficulties in executive function in sense that pt was not able to place hands of clock, attention, recall (0/5), language fluency. Note that her orientation is intact, but higher cognitive function shows more impairment (ability to plan, coordinate, problem solving). Pt does not appear to anticipate danger of walking, without knowing how to get from hospital to [place] with walker and slippers. Pt does not show appropriate problem solving should she is not able to find place to stay by showing to [facility] in [place]. She is not able to express understanding as to why she was sent to [facility] in the first place. And suspect that if patient was as cognitively intact as she thinks she is, she would have been able to secure housing in several months she has been at [facility]. UPDATED RECS 1. PT demonstrating cognitive impairment making her unsafe for discharge. In addition to above, patient says she will now refuse all meds (though did take meds today) and will refuse to eat or drink. She says if she's sent back to [facility], she will elope. Also, patient recently made suicidal comment initiating being brought to ED. Though she denies SI now, she is demonstrating an inability to keep herself safe in the community. 2. Pt does show impairment in higher cognitive function such as plan, coordinate, anticipate dangerous situation, problem solving which pt her at risk of harm. Her recall is poor and this affects her perception of no one is doing anything for her as details as far as efforts to place her she may not remember. She overestimates her ability to care for herself and live independently. She is not able to show understanding as to why she was send to this facility in the first place and fact that her apartment had been condemned prior to going to this facility. On the surface, she appears as much more functional as her orientation is intact and she able to relay superficial information about her current living situation and plans but as more questions are asked she is not able to elaborate further. Patient educated on: diagnosis Informed Consent: does not understand and further education needed Reason for continued inpatient stay Substantial Risk for: inability to function Time Spent With Patient Time: Total time managing care of this patient today ____ minutes.
--- NOTE | 2022-12-15 13:03 | MHC.CARE ---
CARE Team completed Mental Status Update and reviewed case with Dr. Aguayo. Pt does not meet criteria for acute psychiatric admission at this time. Pt is appropriate for discharged back to [facility]. Pt is agreeable to plan of care.
--- NOTE | 2022-12-15 13:42 | MHC.CM.ED ---
Patient cleared by Care Team. Per Care Team note, patient aware she will be discharged back to [facility]. BLS booked for 230pm. PVR made aware via Careport. Patient, Anai BO and Dr Ordaz aware.
--- NOTE | 2022-12-15 15:00 | PC.NURSE ---
Testing And Regulating Chief attempted to visit PT in ER POD to provide a OT therapeutic intervention, however PT was in the middle of being discharged with EMT present.
--- NOTE | 2022-12-15 16:03 | MHC.CM.ED ---
CM received telephone call from liaison at [facility], questioning if CM received her note in care port that the patient's son would not agree to being her HCP. STREETS AND BUILDINGS DECORATOR Gillian evaluated patient yesterday and did not feel patient had capacity to make medical decisions, but was safe for return to [facility]. Pt has been living there since 2021. CM explained to liaison that patient has no other family, as her in 2018 and that the facility may need to petition for guardianship. CM could not complete a HCP for this patient prior to her return via BLS to the facility. Liaison stated that patient is already refusing her medications and that they may have to send her back to us. CM explained that psych does not feel patient meets inpatient criteria, so that may not be the best plan for this patient. Again, stating that facility may need to petition for guardianship and obtain a [place] order for medication administration to care for this patient.
== END 2022-12-15 14:57 | disposition still patient (30) ==
PROVIDERS: Emergency Provider Emergency Medicine; PCP Internal Medicine
DX: F41.9 Anxiety disorder, unspecified (principal); Z79.899 Other long term (current) drug therapy
CPT/HCPCS: 36415; 80048; 80076; 80307; 81001; 83690; 84484; 85025; 87086; 93005; 99285; S9485

== ENCOUNTER → 2022-12-13 17:15 | Outpatient (BNV) | payer OTHER, SELFPAY | PROVIDERS: Emergency Provider Emergency Medicine; PCP Internal Medicine; Visit Provider Social Worker | DX: R41.89 Other symptoms and signs involving cognitive functions and awareness (principal) | CPT/HCPCS: 99231; 99285 ==

== ENCOUNTER 2023-01-05 19:13 | Observation (INO) | payer OTHER, MEDICAID, SELFPAY ==
[2023-01-05 19:32] VITALS: BP 133/54; BP 139/94; PULSE 102; PULSE 88; RESP 12; O2SAT 96; O2SAT 98; BMI 28.4
[2023-01-05 19:57] VITALS: BP 117/33; PULSE 78; RESP 16; TEMP 37; O2SAT 98
[2023-01-05 20:25] LABS: Alanine Aminotransferase 14 U/L (0-31); Albumin Level 3.4 g/dL (3.5-5.0); Alkaline Phosphatase 93 U/L (39-117); Aspartate Amino Transferase 18 U/L (5-31); Bilirubin Direct 0.2 mg/dL (0.0-0.5); Bilirubin Total 0.4 mg/dL (0.0-1.0); Lipase 21 U/L (8-78); Total Protein 6.3 g/dL (6.5-8.0)
--- NOTE | 2023-01-05 20:51 | PC.NURSE ---
Pt ca&ox3, no signs of distress. EKG done, blood drawn, pt changed into hospital attire. Pt placed on bedside monitor. Vitals stable. Pt reporting 3/10 chest pain. wctm.
[2023-01-05 21:29] VITALS: BP 146/74; PULSE 97; RESP 20; TEMP 36.7; O2SAT 98
[2023-01-05 21:51] VITALS: BP 159/68; PULSE 99; RESP 16; TEMP 36.7; O2SAT 97
--- NOTE | 2023-01-05 21:55 | ED.CHESTPAIN ---
HPI - Chest Pain General Chief Complaint: Chest Pain Stated Complaint: rt side chest pain Time Seen by Provider: 01/05/23 21:02 Source: patient and EMS Mode of arrival: EMS History of Present Illness HPI narrative: 67-year-old female who presents via EMS for 2 days chest pain that started yesterday after she 1 her being go game she states that she was walking back to the common area and had to stop because she became acutely short of breath with chest pain that she describes as someone with long nails digging in to the sternal portion of her chest. Patient states that this was treated with 2 nitro and that she felt somewhat better and went to bed. Patient states that today it occurred again, as per triage note patient received aspirin EN route by EMS and that the facility also gave her 1 nitro. At this time patient still complaints substernal chest discomfort with associated shortness of breath that she is experiencing at rest. Related Data Home Medications Medication Instructions Recorded Confirmed acetaminophen 500 mg tablet 500 mg PO BEDTIME 12/14/22 12/14/22 (Tylenol Extra Strength) furosemide 40 mg tablet 40 mg PO DAILY 12/14/22 12/14/22 losartan 25 mg tablet 25 mg PO DAILY 12/14/22 12/14/22 melatonin 5 mg tablet 5 mg PO BEDTIME 12/14/22 12/14/22 multivitamin,gv-pawz-Ev-FA-min 1 tab PO DAILY 12/14/22 12/14/22 nitroglycerin 0.4 mg sublingual 0.4 mg sublingual ONCE PRN Chest 12/14/22 12/14/22 tablet Pain pantoprazole 40 mg tablet,delayed 40 mg PO DAILY 12/14/22 12/14/22 release potassium chloride 20 mEq 20 meq PO DAILY 12/14/22 12/14/22 tablet,extended release(part/cryst) Allergies Allergy/AdvReac Type Severity Reaction Status Date / Time cephalexin Allergy Unknown Verified 02/21/19 00:00 nisoldipine [Sular] Allergy Unknown Verified 02/21/19 00:00 penicillin V Allergy Unknown Verified 02/21/19 00:00 Erythromycin Allergy Unknown Uncoded 02/21/19 00:00 Review of Systems Review of Systems: Pertinent positives and negatives as stated in HPI PMFSH Past Medical History Source: nursing notes reviewed Social History Social History Smoked in Last 30 Days: No Use of substances other than those prescribed or required for medical reasons: No Advance Directives: Yes Advance Directives on File: Yes Advance Directives Date on File: 12/14/22 Physical Exam Vital Signs: Vital Signs: Last Vital Signs Temp 98.0 F 01/05/23 21:51 Pulse 99 01/05/23 21:51 Resp 16 01/05/23 21:51 BP 159/68 H 01/05/23 21:51 Pulse Ox 97 01/05/23 21:51 O2 Del Method Room Air 01/05/23 21:51 BMI result Body Mass Index 28.4 VITAL SIGNS: Reviewed. GENERAL: Appears older than stated age, chronically ill, in no acute distress. HEAD: Normocephalic/atraumatic EYES: PERRLA, EOMI EARS: Ext canals without abnormality NOSE: Nares patent bilateral OROPHARYNX: no oral lesions noted, posterior pharynx clear NECK: Supple, no adenopathy LUNGS: Mild bibasilar rales without tachypnea, good inspiratory effort. SpO2<97> CARDIOVASCULAR: Regular rate and rhythm with systolic murmur(), no JVD but bilateral ankle edema, 1+ pitting ABDOMEN: Soft, non-tender, non-distended with bowel sounds. MUSCULOSKELETAL: No tenderness, deformities, or effusions noted on gross inspection. EXTREMITIES: No cyanosis, clubbing or edema. SKIN: Inspection of the skin reveals no rashes NEUROLOGIC: Alert and oriented x 4. Strength and sensation to light touch were grossly intact x 4. Medications Administered Discontinued Medications Generic Name Dose Route Start Last Admin Trade Name Kasi PRN Reason Stop Dose Admin Al Hydroxide/Mg Hydroxide 30 ml 01/05/23 21:55 01/05/23 22:17 Magnesium Hydrox/Alum Hydrox 30 Ml Oral.Susp PO 01/05/23 21:56 Not Given ONCE ONE Furosemide 40 mg 01/05/23 21:55 01/05/23 22:11 Furosemide 40 Mg/4 Ml Vial IVPUSH 01/05/23 21:56 40 mg ONCE ONE Administration Protocol Lidocaine/Diphenhydr/Alum/Mg/Simeth 10 ml 01/05/23 22:10 01/05/23 22:16 Mag&Al/Sim/Diphenhyd/Lidocaine 10 Ml Oral.Susp PO 01/05/23 22:11 10 ml ONCE ONE Administration Protocol Medical Decision Making Medical Decision Making [facility] Narrative: 2199: 67-year-old female with history and clinical presentation, DDX: ACS, pneumonia, CHF exacerbation. I reviewed all investigations and hematologic indices are chronically stable with chemistries demonstrating elevated troponins which are new for this patient, I do not appreciate any new EKG changes, patient still had chest pain at the time of my interview, she also has a corresponding BNP elevated which is consistent with clinical findings that suggest mild CHF exacerbation without DION or hypoxia. I have treated patient with 40 mg of Lasix. 2216: I discussed the case with Dr. Addison, cardiology, who agrees with admission and holding off on heparin at this time with trending of troponins. 2218: I discussed with inpatient hospitalist admission for CHF and ACS, accepts admission. Differential Diagnosis Please see the discussion above Admission/Observation Consideration of admission/observation: Escalation of care including admission/observation considered Please see discussion above Consult Healthcare Provider Management of the patient was discussed with: Hospitalist Please see discussion above Lab Data Please see discussion above 01/05/23 19:35 01/05/23 19:35 Labs: Lab Results 01/05/23 01/05/23 01/05/23 Range/Units 19:35 19:35 19:35 WBC 6.2 (4.8-10.8) X10*3/uL RBC 3.72 L (4.20-5.50) X10*6/uL Hgb 10.5 L (12.0-16.0) g/dl Hct 31.1 L (37.0-47.0) % MCV 83.6 (80.0-98.0) fL MCH 28.2 (27.0-33.0) pg MCHC 33.8 (31.0-35.0) g/dl RDW 13.2 (11.0-16.0) % Plt Count 309 (160-400) X10*3/uL MPV 9.5 (9.4-12.3) fL Immature Gran % (Auto) 0.2 (0.0-0.4) % Neut % (Auto) 57.0 (45-73) % Lymph % (Auto) 28.7 (20-40) % [place] % (Auto) 11.2 H (2-11) % Eos % (Auto) 2.6 (0-4) % Baso % (Auto) 0.3 (0-2) % Lymph # (Auto) 1.8 (1.2-4.9) X10*3/uL [place] # (Auto) 0.7 (0.1-1.2) X10*3/uL Eos # (Auto) 0.2 (0.0-0.4) X10*3/uL Baso # (Auto) 0.0 (0.0-0.2) X10*3/uL Abs Immat Gran (auto) 0.01 (0.00-0.03) X10*3/uL Absolute Neuts (auto) 3.6 (2.0-8.3) x10*3/uL Absolute Nucleated RBC 0.000 (0.0-0.012) X10*3/uL Nucleated RBC % (auto) 0.0 (0.0-0.2) /100WBC Sodium 143 (135-145) mmol/L Potassium 3.9 (3.3-5.1) mmol/L Chloride 107 (96-108) mmol/L Carbon Dioxide 28 (22-29) mmol/L Anion Gap 12 (12-20) BUN 21 H (9-16) mg/dL Creatinine 0.57 (0.5-1.4) mg/dL Estim Creat Clear Calc 82.2 Estimated GFR > 60 Random Glucose 101 (60-115) mg/dL Calcium 9.2 (8.4-10.2) mg/dL Total Bilirubin (0.0-1.0) mg/dL Direct Bilirubin (0.0-0.5) mg/dL AST (5-31) U/L ALT (0-31) U/L Alkaline Phosphatase (39-117) U/L Troponin I High Sens 29.9 H D (<3.5-17.0) ng/L B-Natriuretic Peptide (<100) pg/mL Total Protein (6.5-8.0) g/dL Albumin (3.5-5.0) g/dL Lipase (8-78) U/L 01/05/23 01/05/23 01/05/23 Range/Units 19:35 19:35 21:20 WBC (4.8-10.8) X10*3/uL RBC (4.20-5.50) X10*6/uL Hgb (12.0-16.0) g/dl Hct (37.0-47.0) % MCV (80.0-98.0) fL MCH (27.0-33.0) pg MCHC (31.0-35.0) g/dl RDW (11.0-16.0) % Plt Count (160-400) X10*3/uL MPV (9.4-12.3) fL Immature Gran % (Auto) (0.0-0.4) % Neut % (Auto) (45-73) % Lymph % (Auto) (20-40) % [place] % (Auto) (2-11) % Eos % (Auto) (0-4) % Baso % (Auto) (0-2) % Lymph # (Auto) (1.2-4.9) X10*3/uL [place] # (Auto) (0.1-1.2) X10*3/uL Eos # (Auto) (0.0-0.4) X10*3/uL Baso # (Auto) (0.0-0.2) X10*3/uL Abs Immat Gran (auto) (0.00-0.03) X10*3/uL Absolute Neuts (auto) (2.0-8.3) x10*3/uL Absolute Nucleated RBC (0.0-0.012) X10*3/uL Nucleated RBC % (auto) (0.0-0.2) /100WBC Sodium (135-145) mmol/L Potassium (3.3-5.1) mmol/L Chloride (96-108) mmol/L Carbon Dioxide (22-29) mmol/L Anion Gap (12-20) BUN (9-16) mg/dL Creatinine (0.5-1.4) mg/dL Estim Creat Clear Calc Estimated GFR Random Glucose (60-115) mg/dL Calcium (8.4-10.2) mg/dL Total Bilirubin 0.4 (0.0-1.0) mg/dL Direct Bilirubin 0.2 (0.0-0.5) mg/dL AST 18 (5-31) U/L ALT 14 (0-31) U/L Alkaline Phosphatase 93 (39-117) U/L Troponin I High Sens 31.6 H (<3.5-17.0) ng/L B-Natriuretic Peptide 318 H (<100) pg/mL Total Protein 6.3 L (6.5-8.0) g/dL Albumin 3.4 L (3.5-5.0) g/dL Lipase 21 (8-78) U/L Independent Interpretation I performed an independent interpretation of an: EKG Interpretation: Sinus rhythm with PACs, HR-92, no STEMI, MO/QRS/QTC is within normal limits. Radiology Impression Radiologist Impression: No pneumonia, otherwise my interpretation is in agreement with radiology's impression. External Record Review External record reviewed: Outpatient record and Prior outpatient labs Chronic Conditions Patient?s care impacted by: Hypertension and Other CAD Critical Care Time Critical Care Time Critical Care Time: Yes Total Critical Care Time: 30 Attestation: I personally attest to this time spent taking care of the patient. Discharge Plan Discharge Patient Disposition: Admitted As Inpatient Prescriptions: No Action furosemide 40 mg Tablet 40 mg PO DAILY losartan 25 mg Tablet 25 mg PO DAILY pantoprazole 40 mg Tablet,Delayed Release (Dr/Ec) 40 mg PO DAILY potassium chloride 20 mEq Tablet,Er Particles/Crystals 20 meq PO DAILY acetaminophen [Tylenol Extra Strength] 500 mg Tablet 500 mg PO BEDTIME melatonin 5 mg Tablet 5 mg PO BEDTIME Multivitamin And Mineral Tablet 1 tab PO DAILY nitroglycerin 0.4 mg Tablet, Sublingual 0.4 mg SUBLINGUAL ONCE PRN (Reason: Chest Pain) Rx Instructions: Administered once, No relief, call 911
--- NOTE | 2023-01-05 22:26 | PM.IMHP ---
History of Present Illness Date of Service: 01/05/23 Chief Complaint: chest pain This is a 67-year-old female with pertinent history of essential hypertension, gastroesophageal reflux disease, coronary artery disease presents to the emergency department for evaluation of chest discomfort. Patient states she has been having on and off chest discomfort for the last few months. Patient presents today as she had severe onset of midsternal chest discomfort radiating to the left arm that started 1 day prior to presentation. It was associated with nausea, sweating and mild dyspnea. Patient states it worsened with ambulation and was relieved with rest. No relief with sublingual nitroglycerin. Patient states she has a history of CAD but does not have any stents. Her father of [place] at the age of 65. Her elder sister of [place] at the age of 60. She denies fever, chills, palpitations, abdominal pain, changes in urinary or bowel habits In the emergency department, troponin was found to be elevated. Cardiology was consulted who requested admission Review of Systems Constitutional: Constitutional: Reports no additional constitutional complaints Eyes: Eyes: Reports no additional eye complaints Cardiovascular: Cardiovascular: Reports chest pain Respiratory: Respiratory: Reports no additional respiratory complaints Gastrointestinal: Gastrointestinal: Reports no additional gastrointestinal complaints [facility] Medical History CAD (coronary artery disease) Essential hypertension Gastroesophageal reflux disease Pertinent family history: Father and older sister: [place] in 60s Social History Patient Tobacco Use Status: Former Tobacco user Smoked in Last 30 Days: No Use of substances other than those prescribed or required for medical reasons: No Advance Directives: Yes Advance Directives on File: Yes Advance Directives Date on File: 12/14/22 Nutrition Risks: No Nutritional Risk Meds Allergies Allergy/AdvReac Type Severity Reaction Status Date / Time cephalexin Allergy Unknown Verified 02/21/19 00:00 nisoldipine [Sular] Allergy Unknown Verified 02/21/19 00:00 penicillin V Allergy Unknown Verified 02/21/19 00:00 Erythromycin Allergy Unknown Uncoded 02/21/19 00:00 Active Medications: Current Medications Acetaminophen (Acetaminophen 325 Mg Tablet) 650 mg PO Q6H PRN PRN Reason: Pain, Mild (Pain Scale 1-3) Enoxaparin Sodium (Enoxaparin Sodium 40 Mg/0.4 Ml Syringe) 40 mg SUBCUT Q24H [facility] Melatonin (Melatonin 3 Mg Tablet) 6 mg PO BEDTIME PRN PRN Reason: Insomnia Nitroglycerin (Nitroglycerin 0.4 Mg Tab.Subl) 0.4 mg SUBLINGUAL Q5MX3 PRN PRN Reason: Chest Pain Ondansetron HCl (Ondansetron Hcl 4 Mg/2 Ml Vial) 4 mg IVPUSH Q8H PRN PRN Reason: Nausea and Vomiting Sodium Chloride (0.9 % Sodium Chloride Flush 3 Ml Syringe) 3 ml IVFLUSH QSHIFT [facility] Home Medications Medication Instructions Recorded Confirmed Last Taken Type acetaminophen 500 mg tablet 500 mg PO BEDTIME 12/14/22 12/14/22 Unknown History (Tylenol Extra Strength) furosemide 40 mg tablet 40 mg PO DAILY 12/14/22 12/14/22 Unknown History losartan 25 mg tablet 25 mg PO DAILY 12/14/22 12/14/22 Unknown History melatonin 5 mg tablet 5 mg PO BEDTIME 12/14/22 12/14/22 Unknown History multivitamin,qa-avzh-Bv-FA-min 1 tab PO DAILY 12/14/22 12/14/22 Unknown History nitroglycerin 0.4 mg sublingual 0.4 mg sublingual ONCE PRN Chest 12/14/22 12/14/22 Unknown History tablet Pain pantoprazole 40 mg tablet,delayed 40 mg PO DAILY 12/14/22 12/14/22 Unknown History release potassium chloride 20 mEq 20 meq PO DAILY 12/14/22 12/14/22 Unknown History tablet,extended release(part/cryst) Physical Exam Vital Signs and Narrative: Vital Signs: Last Vital Signs Temp 98.0 F 01/05/23 21:51 Pulse 99 01/05/23 21:51 Resp 16 01/05/23 21:51 BP 159/68 H 01/05/23 21:51 Pulse Ox 97 01/05/23 21:51 O2 Del Method Room Air 01/05/23 21:51 BMI result Body Mass Index 28.4 Middle-aged female lying in bed in no distress Neck supple, no JVD Regular rate and rhythm, S1-S2 heard Regular breath sounds bilaterally, no wheezing or crackles appreciated Abdomen soft nontender, no guarding, no rigidity Patient is awake, alert and oriented to self, place, time and person ; no focal motor deficit Psych: Normal mood No pedal edema Results Labs 01/05/23 19:35 01/05/23 19:35 Labs: Laboratory Results - last 24 hr 01/05/23 01/05/23 01/05/23 19:35 19:35 19:35 MCV 83.6 MCH 28.2 MCHC 33.8 RDW 13.2 Plt Count 309 MPV 9.5 Immature Gran % (Auto) 0.2 Neut % (Auto) 57.0 Lymph % (Auto) 28.7 [place] % (Auto) 11.2 H Eos % (Auto) 2.6 Baso % (Auto) 0.3 Lymph # (Auto) 1.8 [place] # (Auto) 0.7 Eos # (Auto) 0.2 Baso # (Auto) 0.0 Abs Immat Gran (auto) 0.01 Absolute Neuts (auto) 3.6 Absolute Nucleated RBC 0.000 Nucleated RBC % (auto) 0.0 Anion Gap 12 Estim Creat Clear Calc 82.2 Estimated GFR > 60 Random Glucose 101 Calcium 9.2 Total Bilirubin Direct Bilirubin AST ALT Alkaline Phosphatase Troponin I High Sens 29.9 H D B-Natriuretic Peptide Total Protein Albumin Lipase 01/05/23 01/05/23 01/05/23 19:35 19:35 21:20 MCV MCH MCHC RDW Plt Count MPV Immature Gran % (Auto) Neut % (Auto) Lymph % (Auto) [place] % (Auto) Eos % (Auto) Baso % (Auto) Lymph # (Auto) [place] # (Auto) Eos # (Auto) Baso # (Auto) Abs Immat Gran (auto) Absolute Neuts (auto) Absolute Nucleated RBC Nucleated RBC % (auto) Anion Gap Estim Creat Clear Calc Estimated GFR Random Glucose Calcium Total Bilirubin 0.4 Direct Bilirubin 0.2 AST 18 ALT 14 Alkaline Phosphatase 93 Troponin I High Sens 31.6 H B-Natriuretic Peptide 318 H Total Protein 6.3 L Albumin 3.4 L Lipase 21 Imaging Radiologist's Impressions: Impressions Chest X-Ray 01/05/23 19:44 IMPRESSION: No active cardiopulmonary disease Assessment and Plan (1) Chest pain: Status: Acute Plan This is a 67-year-old female with pertinent history of essential hypertension, gastroesophageal reflux disease, coronary artery disease presents to the emergency department for evaluation of chest discomfort. #. Typical chest discomfort. Will admit patient with cardiac catheterization technician. Trend troponin. Cardiology was consulted from the ER, appreciate assistance. Will order aspirin. Echocardiogram pending #. Essential hypertension. Continue home antihypertensives #. Gastroesophageal reflux disease: On PPI #. CAD. Not on beta-olvin, antiplatelet agent or statin #. Normocytic anemia. Hemoglobin above transfusion threshold Med rec pending DVT prophylaxis: Lovenox Cardiac diet Time Spent With Patient Time: Total time managing care of this patient today ____ minutes. Quality Stroke Does the patient have a stroke diagnosis?: No VTE Prior VTE?: No VTE Risk Level:: Medical - moderate - high VTE Device Contraindication: Treatment Not Indicated VTE Drug Contraindication: N/A - Med Ordered
--- NOTE | 2023-01-05 22:36 | PC.NURSE ---
pt assisted to and from bedside commode with 1 person assist. pt ambulates well using walker at home.
--- NOTE | 2023-01-05 22:41 | PC.NURSE ---
report called to [facility]
[2023-01-06] VITALS: BP 145/67; PULSE 85; RESP 20; TEMP 36.3; O2SAT 98
[2023-01-06 01:00] VITALS: BMI 22.9
[2023-01-06 04:00] VITALS: BP 135/63; PULSE 89; RESP 20; TEMP 36.5; O2SAT 95
[2023-01-06 07:55] VITALS: BP 142/70; PULSE 87; RESP 18; TEMP 36.6; O2SAT 97
--- NOTE | 2023-01-06 08:59 | PHA.MEDREC ---
Pharmacy Consult ? Medication Reconciliation Pharmacy has completed the medication reconciliation. used list from [facility]
--- NOTE | 2023-01-06 10:08 | HO.PM.IMPN ---
Subjective Subjective Date of Service: 01/06/23 Interval History: states chest pain has resolved completely felt the GI cocktail helped the most no dyspnea Review of Systems Review of Systems: Yes all other systems are reviewed and are negative Physical Exam Vital Signs: Vital Signs: Last Vital Signs Temp 97.8 F 01/06/23 07:55 Pulse 87 01/06/23 07:55 Resp 18 01/06/23 07:55 BP 142/70 H 01/06/23 07:55 Pulse Ox 97 01/06/23 07:55 O2 Del Method Room Air 01/06/23 07:55 BMI result Body Mass Index 22.9 Gen: in no acute distress HEENT: sclera anicteric, moist mucus membranes Neck: supple Lungs: clear to auscultation bilaterally Heart: regular rate and rhythm, no murmurs Abd: soft, non-tender, non-distended Ext: no edema Skin: warm/well-perfused Neuro: alert and oriented x3, no focal findings Psych: appropriate affect Objective Data Active Medications Acetaminophen (Acetaminophen 325 Mg Tablet) 650 mg PO Q6H PRN PRN Reason: Pain, Mild (Pain Scale 1-3) Aspirin (Aspirin 81 Mg Tab.Chew) 81 mg PO DAILY [facility] Last Admin: 01/06/23 08:47 Dose: 81 mg Documented By: KUMAR Enoxaparin Sodium (Enoxaparin Sodium 40 Mg/0.4 Ml Syringe) 40 mg SUBCUT Q24H [facility] Last Admin: 01/06/23 00:26 Dose: 40 mg Documented By: EPRI Melatonin (Melatonin 3 Mg Tablet) 6 mg PO BEDTIME PRN PRN Reason: Insomnia Nitroglycerin (Nitroglycerin 0.4 Mg Tab.Subl) 0.4 mg SUBLINGUAL Q5MX3 PRN PRN Reason: Chest Pain Ondansetron HCl (Ondansetron Hcl 4 Mg/2 Ml Vial) 4 mg IVPUSH Q8H PRN PRN Reason: Nausea and Vomiting Pharmacy Consult (Consult Rx Perform Med Rec) 1 each MISCELLANE ONCE PRN PRN Reason: Consult order Sodium Chloride (0.9 % Sodium Chloride Flush 3 Ml Syringe) 3 ml IVFLUSH QSHIFT [facility] Last Admin: 01/06/23 08:47 Dose: 3 ml Documented By: KUMAR Labs 01/06/23 06:29 01/06/23 06:29 Labs: Laboratory Results - last 24 hr 01/05/23 01/05/23 01/05/23 19:35 19:35 19:35 MCV 83.6 MCH 28.2 MCHC 33.8 RDW 13.2 Plt Count 309 MPV 9.5 Immature Gran % (Auto) 0.2 Neut % (Auto) 57.0 Lymph % (Auto) 28.7 [place] % (Auto) 11.2 H Eos % (Auto) 2.6 Baso % (Auto) 0.3 Lymph # (Auto) 1.8 [place] # (Auto) 0.7 Eos # (Auto) 0.2 Baso # (Auto) 0.0 Abs Immat Gran (auto) 0.01 Absolute Neuts (auto) 3.6 Absolute Nucleated RBC 0.000 Nucleated RBC % (auto) 0.0 PT INR APTT Anion Gap 12 Estim Creat Clear Calc 82.2 Estimated GFR > 60 Random Glucose 101 Calcium 9.2 Total Bilirubin Direct Bilirubin AST ALT Alkaline Phosphatase Troponin I High Sens 29.9 H D B-Natriuretic Peptide Total Protein Albumin Lipase 01/05/23 01/05/23 01/05/23 19:35 19:35 21:20 MCV MCH MCHC RDW Plt Count MPV Immature Gran % (Auto) Neut % (Auto) Lymph % (Auto) [place] % (Auto) Eos % (Auto) Baso % (Auto) Lymph # (Auto) [place] # (Auto) Eos # (Auto) Baso # (Auto) Abs Immat Gran (auto) Absolute Neuts (auto) Absolute Nucleated RBC Nucleated RBC % (auto) PT INR APTT Anion Gap Estim Creat Clear Calc Estimated GFR Random Glucose Calcium Total Bilirubin 0.4 Direct Bilirubin 0.2 AST 18 ALT 14 Alkaline Phosphatase 93 Troponin I High Sens 31.6 H B-Natriuretic Peptide 318 H Total Protein 6.3 L Albumin 3.4 L Lipase 21 01/05/23 01/06/23 01/06/23 22:12 06:29 06:29 MCV 83.5 MCH 27.7 MCHC 33.2 RDW 13.1 Plt Count 307 MPV 9.9 Immature Gran % (Auto) 0.2 Neut % (Auto) 59.2 Lymph % (Auto) 28.3 [place] % (Auto) 9.7 Eos % (Auto) 2.3 Baso % (Auto) 0.3 Lymph # (Auto) 1.7 [place] # (Auto) 0.6 Eos # (Auto) 0.1 Baso # (Auto) 0.0 Abs Immat Gran (auto) 0.01 Absolute Neuts (auto) 3.5 Absolute Nucleated RBC 0.000 Nucleated RBC % (auto) 0.0 PT 11.8 INR 1.0 APTT 28.0 Anion Gap 14 Estim Creat Clear Calc 74.1 Estimated GFR > 60 Random Glucose 89 Calcium 9.6 Total Bilirubin Direct Bilirubin AST ALT Alkaline Phosphatase Troponin I High Sens B-Natriuretic Peptide Total Protein Albumin Lipase 01/06/23 06:29 MCV MCH MCHC RDW Plt Count MPV Immature Gran % (Auto) Neut % (Auto) Lymph % (Auto) [place] % (Auto) Eos % (Auto) Baso % (Auto) Lymph # (Auto) [place] # (Auto) Eos # (Auto) Baso # (Auto) Abs Immat Gran (auto) Absolute Neuts (auto) Absolute Nucleated RBC Nucleated RBC % (auto) PT INR APTT Anion Gap Estim Creat Clear Calc Estimated GFR Random Glucose Calcium Total Bilirubin Direct Bilirubin AST ALT Alkaline Phosphatase Troponin I High Sens 36.0 H B-Natriuretic Peptide Total Protein Albumin Lipase Assessment and Plan (1) Chest pain: Status: Acute Plan d#2 67yo F with HTN, GERD, ?CAD admitted for typical chest discomfort # chest pain - Cardiology consult, Tn-I flat/indeterminate, TTE, ASA, ?inpt stress test # HTN - losartan, furosemide # GERD - PPI # VTE ppx: LMWH # dispo: TBD In my clinical judgment, the patient requires continued inpatient hospitalization for the following reasons: chest pain Time Spent With Patient Time: Total time managing care of this patient today ___35_ minutes. Quality Stroke Does the patient have a stroke diagnosis?: No VTE Prior VTE?: No VTE Risk Level:: Medical - moderate - high VTE Device Contraindication: Treatment Not Indicated VTE Drug Contraindication: N/A - Med Ordered
--- NOTE | 2023-01-06 10:28 | PM.CNCAR ---
History of Present Illness History of Present Illness Date of Service: 01/06/23 Chief complaint: Chest Pain Narrative: This is a cardiology consultation regarding chest pain and elevated troponins. Somewhat difficult historian. Over the last few months or so, she has been having off and on chest discomfort as well as shortness of breath. With and without exertion. Difficult to obtain more clear-cut information. In the last day or so, she had more symptoms and that led to the presentation. Borderline troponin elevation. She states that both her sisters had coronary disease. Father also had coronary disease. Hence that seems to be strong family history. Review of Systems Review of Systems: Yes all other systems are reviewed and are negative Constitutional: Constitutional: Reports as per HPI and Reports no additional constitutional complaints Eyes: Eyes: Reports as per HPI and Denies no additional eye complaints ENT: Denies system reviewed and no additional complaints, except as documented and Reports as per HPI Cardiovascular: Cardiovascular: Reports as per HPI, Reports no additional cardiovascular complaints, Denies acrocyanosis, Denies cool extremities, Reports chest pain, Denies leg edema, Denies lightheadedness, Denies palpitations and Reports dyspnea Respiratory: Respiratory: Reports as per HPI, Denies no additional respiratory complaints and Reports dyspnea Gastrointestinal: Gastrointestinal: Reports as per HPI and Denies no additional gastrointestinal complaints Genitourinary: Genitourinary: Reports as per HPI Musculoskeletal: Musculoskeletal: Reports no additional musculoskeletal complaints and Reports as per HPI Integumentary/Breasts: Skin/Breast: Reports system reviewed and no additional complaints, except as docu Neurologic: Reports system reviewed and no additional complaints, except as documented and Reports as per HPI Psychiatric: Psychiatric: Reports no additional psychiatric complaints and Reports as per HPI Endocrine: Endocrine: Reports no additional endocrine complaints, Reports as per HPI and Denies palpitations Hematologic/Lymphatic: Hematologic/Lymphatic: Reports no additional hematologic/lymphatic complaints and Reports as per HPI Allergic/Immunologic: Allergic/Immunologic: Reports no additional allergic/immunologic complaints and Reports as per HPI [facility] Past Medical History Medical History CAD (coronary artery disease) Essential hypertension Gastroesophageal reflux disease Family History Family History (Updated 01/06/23 @ 10:37 by Demian Addison MD) Sister CAD (coronary artery disease) Social History Social History Household Members: None Housing: Homeless Housing Other:: Pt states homeless, coming from [facility] Do you presently have visiting nurse or other home services: No Patient Tobacco Use Status: Former Tobacco user Smoked in Last 30 Days: No e-Cigarette/Vaping Use: Never Used Patient Interested in Nicotine Replacement: No Use of substances other than those prescribed or required for medical reasons: No Currently Displaying Signs/Symptoms of Drug Intoxication Withdrawal: No Any prior treatment program specific to substance use: No Have you been hit, kicked, punched, or otherwise hurt by someone within the past year? If so, by whom?: No Do you feel safe in your current relationship?: No Current Relationship Is there a partner from a previous relationship who is making you feel unsafe now?: No Are you made to feel afraid or neglected: No [facility] Practices: [facility] Advance Directives: Yes Advance Directives on File: Yes Advance Directives Date on File: 12/14/22 Recently lost weight without trying: Yes How much weight loss: 24-33 pounds Eating poorly because of decreased appetite: Yes Nutrition screen score: 6 Nutrition Risks: Poor intake 0-25% >4 days Patient : No : No Poor oral hygiene: Yes (poor dentition) Meds Allergies Allergy/AdvReac Type Severity Reaction Status Date / Time cephalexin Allergy Unknown Verified 02/21/19 00:00 nisoldipine [Sular] Allergy Unknown Verified 02/21/19 00:00 penicillin V Allergy Unknown Verified 02/21/19 00:00 Erythromycin Allergy Unknown Uncoded 02/21/19 00:00 Active Medications: Current Medications Acetaminophen (Acetaminophen 325 Mg Tablet) 650 mg PO Q6H PRN PRN Reason: Pain, Mild (Pain Scale 1-3) Aspirin (Aspirin 81 Mg Tab.Chew) 81 mg PO DAILY RONNIE Last Admin: 01/06/23 08:47 Dose: 81 mg Calcium Carbonate (Calcium Carbonate 750 Mg Tab.Chew) 750 mg PO Q8H PRN PRN Reason: Indigestion Enoxaparin Sodium (Enoxaparin Sodium 40 Mg/0.4 Ml Syringe) 40 mg SUBCUT Q24H RONNIE Last Admin: 01/06/23 00:26 Dose: 40 mg Furosemide (Furosemide 40 Mg Tablet) 40 mg PO DAILY RONNIE; Protocol Losartan Potassium (Losartan Potassium 25 Mg Tablet) 25 mg PO DAILY RONNIE; Protocol Melatonin (Melatonin 3 Mg Tablet) 6 mg PO BEDTIME PRN PRN Reason: Insomnia Melatonin (Melatonin 3 Mg Tablet) 6 mg PO BEDTIME RONNIE Nitroglycerin (Nitroglycerin 0.4 Mg Tab.Subl) 0.4 mg SUBLINGUAL Q5MX3 PRN PRN Reason: Chest Pain Nitroglycerin (Nitroglycerin 0.4 Mg Tab.Subl) 0.4 mg SUBLINGUAL ONCE PRN PRN Reason: Chest Pain Omeprazole (Omeprazole 20 Mg Capsule.Dr) 20 mg PO DAILY@0630 [facility] Ondansetron HCl (Ondansetron Hcl 4 Mg/2 Ml Vial) 4 mg IVPUSH Q8H PRN PRN Reason: Nausea and Vomiting Pharmacy Consult (Consult Rx Perform Med Rec) 1 each MISCELLANE ONCE PRN PRN Reason: Consult order Potassium Chloride (Potassium Chloride Er 20 Meq Tab.Er.Prt) 20 meq PO DAILY [facility] Sodium Chloride (0.9 % Sodium Chloride Flush 3 Ml Syringe) 3 ml IVFLUSH QSHIFT [facility] Last Admin: 01/06/23 08:47 Dose: 3 ml Home Medications Medication Instructions Recorded Confirmed Last Taken Type acetaminophen 500 mg tablet 500 mg PO BEDTIME 12/14/22 01/06/23 Unknown History (Tylenol Extra Strength) furosemide 40 mg tablet 40 mg PO DAILY 12/14/22 01/06/23 Unknown History losartan 25 mg tablet 25 mg PO DAILY 12/14/22 01/06/23 Unknown History melatonin 5 mg tablet 5 mg PO BEDTIME 12/14/22 01/06/23 Unknown History multivitamin,vp-[id number]-Ki-FA-min 1 tab PO DAILY 12/14/22 01/06/23 Unknown History nitroglycerin 0.4 mg sublingual 0.4 mg sublingual ONCE PRN Chest 12/14/22 01/06/23 Unknown History tablet Pain pantoprazole 40 mg tablet,delayed 40 mg PO DAILY 12/14/22 01/06/23 Unknown History release potassium chloride 20 mEq 20 meq PO DAILY 12/14/22 01/06/23 Unknown History tablet,extended release(part/cryst) calcium carbonate 500 mg calcium 1,000 mg PO Q8H PRN Indigestion 01/06/23 01/06/23 Unknown History (1,250 mg) chewable tablet Physical Exam Vital Signs: Vital Signs: Last Vital Signs Temp 97.8 F 01/06/23 07:55 Pulse 87 01/06/23 07:55 Resp 18 01/06/23 07:55 BP 142/70 H 01/06/23 07:55 Pulse Ox 97 01/06/23 07:55 O2 Del Method Room Air 01/06/23 07:55 BMI result Body Mass Index 22.9 Const: General: comfortable and no acute distress Orientation/consciousness: patient oriented x3 HEENT: Other: Unremarkable Head: Yes normal to inspection Neck: Neck: Yes normal visual inspection Chest: Chest palpation & inspection: normal inspection of the chest Resp: Auscultation: clear to auscultation bilaterally Cardio: Palpation: normal PMI Heart sounds: S1 normal heart sound present, S2 normal heart sound present, no gallops, Murmur heart sound present systolic III/ and at the right sternal border and no rubs GI: Palpation (GI): Soft to palpation Back/Spine/Pelvis: Other: unremarkable Skin: General skin exam: no rashes or lesions noted Neuro: General: patient oriented x3 Extrem: General: Yes normal to inspection Psych: Mental Status: mental status grossly normal Objective Labs and Meds 01/06/23 06:29 01/06/23 06:29 Lab results: Laboratory Results - last 24 hr 01/05/23 01/05/23 01/05/23 19:35 19:35 19:35 WBC 6.2 RBC 3.72 L Hgb 10.5 L Hct 31.1 L MCV 83.6 MCH 28.2 MCHC 33.8 RDW 13.2 Plt Count 309 MPV 9.5 Immature Gran % (Auto) 0.2 Neut % (Auto) 57.0 Lymph % (Auto) 28.7 [place] % (Auto) 11.2 H Eos % (Auto) 2.6 Baso % (Auto) 0.3 Lymph # (Auto) 1.8 [place] # (Auto) 0.7 Eos # (Auto) 0.2 Baso # (Auto) 0.0 Abs Immat Gran (auto) 0.01 Absolute Neuts (auto) 3.6 Absolute Nucleated RBC 0.000 Nucleated RBC % (auto) 0.0 PT INR APTT Sodium 143 Potassium 3.9 Chloride 107 Carbon Dioxide 28 Anion Gap 12 BUN 21 H Creatinine 0.57 Estim Creat Clear Calc 82.2 Estimated GFR > 60 Random Glucose 101 Calcium 9.2 Total Bilirubin Direct Bilirubin AST ALT Alkaline Phosphatase Troponin I High Sens 29.9 H D B-Natriuretic Peptide Total Protein Albumin Lipase 01/05/23 01/05/23 01/05/23 19:35 19:35 21:20 WBC RBC Hgb Hct MCV MCH MCHC RDW Plt Count MPV Immature Gran % (Auto) Neut % (Auto) Lymph % (Auto) [place] % (Auto) Eos % (Auto) Baso % (Auto) Lymph # (Auto) [place] # (Auto) Eos # (Auto) Baso # (Auto) Abs Immat Gran (auto) Absolute Neuts (auto) Absolute Nucleated RBC Nucleated RBC % (auto) PT INR APTT Sodium Potassium Chloride Carbon Dioxide Anion Gap BUN Creatinine Estim Creat Clear Calc Estimated GFR Random Glucose Calcium Total Bilirubin 0.4 Direct Bilirubin 0.2 AST 18 ALT 14 Alkaline Phosphatase 93 Troponin I High Sens 31.6 H B-Natriuretic Peptide 318 H Total Protein 6.3 L Albumin 3.4 L Lipase 21 01/05/23 01/06/23 01/06/23 22:12 06:29 06:29 WBC 6.0 RBC 3.82 L Hgb 10.6 L Hct 31.9 L MCV 83.5 MCH 27.7 MCHC 33.2 RDW 13.1 Plt Count 307 MPV 9.9 Immature Gran % (Auto) 0.2 Neut % (Auto) 59.2 Lymph % (Auto) 28.3 [place] % (Auto) 9.7 Eos % (Auto) 2.3 Baso % (Auto) 0.3 Lymph # (Auto) 1.7 [place] # (Auto) 0.6 Eos # (Auto) 0.1 Baso # (Auto) 0.0 Abs Immat Gran (auto) 0.01 Absolute Neuts (auto) 3.5 Absolute Nucleated RBC 0.000 Nucleated RBC % (auto) 0.0 PT 11.8 INR 1.0 APTT 28.0 Sodium 145 Potassium 4.1 Chloride 107 Carbon Dioxide 28 Anion Gap 14 BUN 17 H Creatinine 0.54 Estim Creat Clear Calc 74.1 Estimated GFR > 60 Random Glucose 89 Calcium 9.6 Total Bilirubin Direct Bilirubin AST ALT Alkaline Phosphatase Troponin I High Sens B-Natriuretic Peptide Total Protein Albumin Lipase 01/06/23 06:29 WBC RBC Hgb Hct MCV MCH MCHC RDW Plt Count MPV Immature Gran % (Auto) Neut % (Auto) Lymph % (Auto) [place] % (Auto) Eos % (Auto) Baso % (Auto) Lymph # (Auto) [place] # (Auto) Eos # (Auto) Baso # (Auto) Abs Immat Gran (auto) Absolute Neuts (auto) Absolute Nucleated RBC Nucleated RBC % (auto) PT INR APTT Sodium Potassium Chloride Carbon Dioxide Anion Gap BUN Creatinine Estim Creat Clear Calc Estimated GFR Random Glucose Calcium Total Bilirubin Direct Bilirubin AST ALT Alkaline Phosphatase Troponin I High Sens 36.0 H B-Natriuretic Peptide Total Protein Albumin Lipase ECG Interpretation: EKG with sinus rhythm at 92/Min; premature atrial contractions; no significant ST-T changes and otherwise unremarkable. Imaging Radiologist's impression: Impressions Chest X-Ray 01/05/23 19:44 IMPRESSION: No active cardiopulmonary disease Assessment and Plan (1) Chest pain: Status: Acute (2) Aortic valve stenosis, nonrheumatic: Status: Acute (3) Cognitive impairment: Status: Acute Plan Borderline troponin elevation. On exam, she has aortic stenosis murmur. We will start with an echocardiogram for further evaluation. Then will need ischemia workup. Either stress testing versus cardiac catheterization. To be decided. Based on prior notes, there is some cognitive impairment and that will need to be taken into account for cardiac testing/procedures. May need pysch input. Will follow up with you. Discussed with Dr. Dixon. Time Spent With Patient Time: Total time managing care of this patient today ____ minutes. Procedures Date of Service Date of Service: 01/06/23
[2023-01-06 11:33] VITALS: BP 130/59; PULSE 91; RESP 18; TEMP 36.7; O2SAT 95
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
--- NOTE | 2023-01-06 13:39 | PC.NURSE ---
1240 pt c/o chest pain more center to right chest worsening with deep breathing. VS 132/61 HR 72 96% on room air. Pain 10/10 per pt nitro has not helped in past pt asking for magic mouthwash which was given night before with effect. Dr Dixon notified order placed and given per order. Will continue to monitor and report changes
[2023-01-06 15:31] VITALS: BP 122/58; PULSE 62; RESP 17; TEMP 37.1; O2SAT 96
[2023-01-06 19:23] VITALS: BP 118/54; PULSE 79; RESP 17; TEMP 37; O2SAT 95
--- NOTE | 2023-01-06 19:39 | PM.PSYCN ---
History of Present Illness Date of Service: 01/06/23 Chief Complaint: Chest Pain Reason for Consult: capacity HPI Narrative: per medicine admission note of 01/05: This is a 67-year-old female with pertinent history of essential hypertension, gastroesophageal reflux disease, coronary artery disease presents to the emergency department for evaluation of chest discomfort. #.? Typical chest discomfort.? Will admit patient with classroom monitor.? Trend troponin.? Cardiology was consulted from the ER, appreciate assistance.? Will order aspirin.? Echocardiogram pending #.? Essential hypertension.? Continue home antihypertensives #.? Gastroesophageal reflux disease:? On PPI #.? CAD.? Not on beta-olvin, antiplatelet agent or statin #.? Normocytic anemia.? Hemoglobin above transfusion threshold per cardiology consult of 01/06/23: Borderline troponin elevation. On exam, she has aortic stenosis murmur. We will start with an echocardiogram for further evaluation. Then will need ischemia workup.? Either stress testing versus cardiac catheterization.? To be decided. Based on prior notes, there is some cognitive impairment and that will need to be taken into account for cardiac testing/procedures. May need pysch input. Will follow up with you. Discussed with Dr. Dixon. Echo with severe /MS/pulm HTN. Requires diagnostic cath, valve team assessment. Due to recent psych concerns as documented in notes from last month, would ask them to see formally and ensure patient can handle cardiac procedures without any major psychiatry issues. If so, will transfer to [facility]. D/c NTG. Discussed with . psych 01/06 interview: pt seen, chart reviewed, including psych consults, cardiology notes, medicine notes. pt seen in her room. basic cognitive evaluation done, MSE, discussion of pt's current medical condition and proposed treatments. it was reviewed with pt that she has cardiac valvular stenosis, that the risks of doing nothing are that her pain will continue and she will likely sooner rather than later of CO or stroke. risks of cath and/or open-heart surgery involved infection, CO or stroke especially for surgery. benefits of cath and/or surgery are resolution/reduction in chest pain and longer life with decreased risk of CO or stroke in the near future. pt demonstrated deficits consistent with MCI. she initially was unable to describe her current preeminent medical problem, the risks of no treatment, or the risks and benefits of proposed treatments. through serial repetition and rehearsal over about 30 minutes, she was able to learn the information and repeat it back to examiner. she was also able to consistently express a preference for treatment. [facility] Medical History CAD (coronary artery disease) Essential hypertension Gastroesophageal reflux disease Diagnostics Vital Signs (24Hr): Vital Signs - 24 hr 01/05/23 19:57 01/05/23 21:29 01/05/23 21:51 Temperature 98.6 F 98.0 F 98.0 F Pulse Rate 78 97 99 Respiratory Rate 16 20 16 Blood Pressure 117/33 L 146/74 H 159/68 H Pulse Oximetry 98 98 97 Oxygen Delivery Method Room Air Room Air Room Air 01/06/23 00:00 01/06/23 04:00 01/06/23 07:55 Temperature 97.4 F 97.7 F 97.8 F Pulse Rate 85 89 87 Respiratory Rate 20 20 18 Blood Pressure 145/67 H 135/63 142/70 H Pulse Oximetry 98 95 97 Oxygen Delivery Method Room Air Room Air 01/06/23 11:33 01/06/23 15:31 01/06/23 19:23 Temperature 98.1 F 98.8 F 98.6 F Pulse Rate 91 62 79 Respiratory Rate 18 17 17 Blood Pressure 130/59 L 122/58 L 118/54 L Pulse Oximetry 95 96 95 Oxygen Delivery Method Room Air Room Air Room Air BMI result Body Mass Index 22.9 Labs 01/06/23 06:29 01/06/23 06:29 Labs: Laboratory Results - last 48 hr 01/05/23 01/05/23 01/05/23 19:35 19:35 19:35 WBC 6.2 RBC 3.72 L Hgb 10.5 L Hct 31.1 L MCV 83.6 MCH 28.2 MCHC 33.8 RDW 13.2 Plt Count 309 MPV 9.5 Immature Gran % (Auto) 0.2 Neut % (Auto) 57.0 Lymph % (Auto) 28.7 [place] % (Auto) 11.2 H Eos % (Auto) 2.6 Baso % (Auto) 0.3 Lymph # (Auto) 1.8 [place] # (Auto) 0.7 Eos # (Auto) 0.2 Baso # (Auto) 0.0 Abs Immat Gran (auto) 0.01 Absolute Neuts (auto) 3.6 Absolute Nucleated RBC 0.000 Nucleated RBC % (auto) 0.0 PT INR APTT Sodium 143 Potassium 3.9 Chloride 107 Carbon Dioxide 28 Anion Gap 12 BUN 21 H Creatinine 0.57 Estim Creat Clear Calc 82.2 Estimated GFR > 60 Random Glucose 101 Calcium 9.2 Total Bilirubin Direct Bilirubin AST ALT Alkaline Phosphatase Troponin I High Sens 29.9 H D B-Natriuretic Peptide Total Protein Albumin Lipase 01/05/23 01/05/23 01/05/23 19:35 19:35 21:20 WBC RBC Hgb Hct MCV MCH MCHC RDW Plt Count MPV Immature Gran % (Auto) Neut % (Auto) Lymph % (Auto) [place] % (Auto) Eos % (Auto) Baso % (Auto) Lymph # (Auto) [place] # (Auto) Eos # (Auto) Baso # (Auto) Abs Immat Gran (auto) Absolute Neuts (auto) Absolute Nucleated RBC Nucleated RBC % (auto) PT INR APTT Sodium Potassium Chloride Carbon Dioxide Anion Gap BUN Creatinine Estim Creat Clear Calc Estimated GFR Random Glucose Calcium Total Bilirubin 0.4 Direct Bilirubin 0.2 AST 18 ALT 14 Alkaline Phosphatase 93 Troponin I High Sens 31.6 H B-Natriuretic Peptide 318 H Total Protein 6.3 L Albumin 3.4 L Lipase 21 01/05/23 01/06/23 01/06/23 22:12 06:29 06:29 WBC 6.0 RBC 3.82 L Hgb 10.6 L Hct 31.9 L MCV 83.5 MCH 27.7 MCHC 33.2 RDW 13.1 Plt Count 307 MPV 9.9 Immature Gran % (Auto) 0.2 Neut % (Auto) 59.2 Lymph % (Auto) 28.3 [place] % (Auto) 9.7 Eos % (Auto) 2.3 Baso % (Auto) 0.3 Lymph # (Auto) 1.7 [place] # (Auto) 0.6 Eos # (Auto) 0.1 Baso # (Auto) 0.0 Abs Immat Gran (auto) 0.01 Absolute Neuts (auto) 3.5 Absolute Nucleated RBC 0.000 Nucleated RBC % (auto) 0.0 PT 11.8 INR 1.0 APTT 28.0 Sodium 145 Potassium 4.1 Chloride 107 Carbon Dioxide 28 Anion Gap 14 BUN 17 H Creatinine 0.54 Estim Creat Clear Calc 74.1 Estimated GFR > 60 Random Glucose 89 Calcium 9.6 Total Bilirubin Direct Bilirubin AST ALT Alkaline Phosphatase Troponin I High Sens B-Natriuretic Peptide Total Protein Albumin Lipase 01/06/23 06:29 WBC RBC Hgb Hct MCV MCH MCHC RDW Plt Count MPV Immature Gran % (Auto) Neut % (Auto) Lymph % (Auto) [place] % (Auto) Eos % (Auto) Baso % (Auto) Lymph # (Auto) [place] # (Auto) Eos # (Auto) Baso # (Auto) Abs Immat Gran (auto) Absolute Neuts (auto) Absolute Nucleated RBC Nucleated RBC % (auto) PT INR APTT Sodium Potassium Chloride Carbon Dioxide Anion Gap BUN Creatinine Estim Creat Clear Calc Estimated GFR Random Glucose Calcium Total Bilirubin Direct Bilirubin AST ALT Alkaline Phosphatase Troponin I High Sens 36.0 H B-Natriuretic Peptide Total Protein Albumin Lipase Imaging Radiology Impressions: ITS Impressions Chest X-Ray 01/05/23 19:44 IMPRESSION: No active cardiopulmonary disease Mental Status Exam Mental Status Exam Narrative: Appearance: wearing hospital gown, seated on edge of bed, in NAD Behavior: cooperative Psychomotor: no agitation or retardation noted Speech: clear, normal rate/rhythm/volume, spontaneous TP: goal oriented TC: no delusions or paranoia noted Mood: i'm not looking forward to any of those Affect: full range, mildly hyper-intense, non-labile SI: denies HI: denies VH/AH: denies, does not appear internally preoccupied Insight/judgment: impaired x 2 Memory/cog: alert, oriented x 4. 2/3 recall after some minutes of distraction, 4/5 serial 3s from 20. Medications Medications Current Medications Acetaminophen (Acetaminophen 325 Mg Tablet) 650 mg PO Q6H PRN PRN Reason: Pain, Mild (Pain Scale 1-3) Aspirin (Aspirin 81 Mg Tab.Chew) 81 mg PO DAILY [facility] Last Admin: 01/06/23 08:47 Dose: 81 mg Calcium Carbonate (Calcium Carbonate 750 Mg Tab.Chew) 750 mg PO Q8H PRN PRN Reason: Indigestion Enoxaparin Sodium (Enoxaparin Sodium 40 Mg/0.4 Ml Syringe) 40 mg SUBCUT Q24H RONNIE Last Admin: 01/06/23 00:26 Dose: 40 mg Furosemide (Furosemide 40 Mg Tablet) 40 mg PO DAILY RONNIE; Protocol Last Admin: 01/06/23 11:35 Dose: 40 mg Losartan Potassium (Losartan Potassium 25 Mg Tablet) 25 mg PO DAILY [facility]; Protocol Last Admin: 01/06/23 11:35 Dose: 25 mg Melatonin (Melatonin 3 Mg Tablet) 6 mg PO BEDTIME PRN PRN Reason: Insomnia Melatonin (Melatonin 3 Mg Tablet) 6 mg PO BEDTIME RONNIE Omeprazole (Omeprazole 20 Mg Capsule.Dr) 20 mg PO DAILY@0630 [facility] Ondansetron HCl (Ondansetron Hcl 4 Mg/2 Ml Vial) 4 mg IVPUSH Q8H PRN PRN Reason: Nausea and Vomiting Pharmacy Consult (Consult Rx Perform Med Rec) 1 each MISCELLANE ONCE PRN PRN Reason: Consult order Potassium Chloride (Potassium Chloride Er 20 Meq Tab.Er.Prt) 20 meq PO DAILY [facility] Last Admin: 01/06/23 11:35 Dose: 20 meq Sodium Chloride (0.9 % Sodium Chloride Flush 3 Ml Syringe) 3 ml IVFLUSH QSHIFT [facility] Last Admin: 01/06/23 17:25 Dose: 3 ml Allergies Allergies Allergy/AdvReac Type Severity Reaction Status Date / Time cephalexin Allergy Unknown Verified 02/21/19 00:00 nisoldipine [Sular] Allergy Unknown Verified 02/21/19 00:00 penicillin V Allergy Unknown Verified 02/21/19 00:00 Erythromycin Allergy Unknown Uncoded 02/21/19 00:00 Assessment & Plan Assessment & Plan (1) Cognitive impairment: Status: Acute Code(s): R41.89 - Other symptoms and signs involving cognitive functions and awareness (2) Aortic valve stenosis, nonrheumatic: Status: Acute Code(s): I35.0 - Nonrheumatic aortic (valve) stenosis (3) Chest pain: Status: Acute Code(s): R07.9 - Chest pain, unspecified Assessment and Plan: persons are assumed to have capacity unless it is questioned, and therefore the onus to prove lack of capacity rests with the wind project manager. this patient is clearly cognitively impaired, in the moderate range per most recent MoCA of 20. she is oriented to person, place, time, and circumstance. her attention and recall are certainly impaired, but not gravely so. she recalled 2 of 3 words after some minutes and distraction today, and she was able to do 4 of 5 serial subtractions of 3 from 20 accurately. she initially displayed rather complete ignorance of her present medical condition requiring correction, but through repetition and rehearsal she was able to adequately describe the essence of her medical condition, the chief risks of no intervention, and the risks and benefits of the proposed interventions. this was achieved in the course of 20-30 minutes of coaching and review. as it is a very substantial deprivation of personal liberty to abrogate an individual's right to control what happens to their own body, the standard to do so must be quite high. despite ms valderrama's demonstrable cognitive deficits, she was able to demonstrate the ability to learn new information, integrate it into her understanding of present circumstance, manipulate it rationally, retain the information, and express a consistent decision. this was over the course of 30 minutes; it is unclear what she may retain in a day. nevertheless, it is the opinion of this narrative writer that the patient demonstrated adequate decisional capacity regarding the proposed interventions this day, in light of the necessarily stringent standard that must be met in order to supersede the individual's right to autonomy. capacity is a dynamic quality, and therefore should there be continued or repeated concern for this patient's capacity to consent to the recommended procedures, please do not hesitate to re-consult psychiatry. Total time managing care of this patient today __75__ minutes.
[2023-01-07] VITALS: BP 130/59; PULSE 95; RESP 18; TEMP 37.2; O2SAT 92
[2023-01-07 02:42] VITALS: BP 122/56; PULSE 82; RESP 18; TEMP 36.1; O2SAT 94
[2023-01-07 07:38] VITALS: BP 121/65; PULSE 80; RESP 20; TEMP 36.3; O2SAT 97
--- NOTE | 2023-01-07 10:01 | PC.NURSE ---
Addendum entered by Meka Elizabeth RN 01/07/23 11:10: Magic mouthwash administered w/ good effect - pain down from 7 to 0/10. Awaiting bed from [facility]. Original Note: Patient c/o 7 right sided chest pain/pressure radiating to right shoulder w/ mild SOB. Pain worse w/ palpation, no changed on tele, sinus, VSS. Patient reports having same pain yesterday, relieved w/ magic mouthwash. Patient requesting another order of magic mouthwash. Dr Akbar & Dr Nayak aware. Magic mouthwash ordered. No EKG per MD. Plan for transfer to [facility] per cardio.
--- NOTE | 2023-01-07 10:38 | PM.DS ---
DS: Providers Provider Date of Service: 01/07/23 Date of admission: 01/05/23 22:21 Primary care physician: Unknown Physician Consults: 01/05/23 22:21 Consult to Cardiology Routine Consulting Provider: [facility] Cardiovascular Services Reason for consultation: chest pain 01/06/23 12:46 Consult to Psychiatry Routine Consulting Provider: Psych Covering Reason for consultation: Competency eval. Needs valve surgery/cardiac cath. See prior psych notes DS: Diagnosis Discharge Diagnosis (1) Cognitive impairment: Status: Acute (2) Aortic valve stenosis, nonrheumatic: Status: Acute (3) Chest pain: Status: Acute DS: Summary Hospital Course Hospital Course: from initial hpi: 67-year-old female with pertinent history of essential hypertension, gastroesophageal reflux disease, coronary artery disease presents to the emergency department for evaluation of chest discomfort.? Patient states she has been having on and off chest discomfort for the last few months.? Patient presents today as she had severe onset of midsternal chest discomfort radiating to the left arm that started 1 day prior to presentation.? It was associated with nausea, sweating and mild dyspnea.? Patient states it worsened with ambulation and was relieved with rest.? No relief with sublingual nitroglycerin.? Patient states she has a history of CAD but does not have any stents.? Her father of PA at the age of 65.? Her elder sister of PA at the age of 60.? She denies fever, chills, palpitations, abdominal pain, changes in urinary or bowel habits In the emergency department, troponin was found to be elevated.? Cardiology was consulted who requested admission hospital course: Patient was admitted for chest pain. Troponins were flat/indeterminate. She underwent ECHO which showed severe aortic stenosis. She was seen by Cardiology recommended transfer to [facility] for cardiac catheterization . She was seen by Psychiatry and determined to have enough insight to have capacity to make medical decisions regarding current diagnosis despite underlying cognitive impairment. For hypertension was continue losartan and furosemide. For GERD was continued on PPI. Patient will be transferred to [facility]. Time Spent with Patient Time attestation: Total time managing care of this patient today ____ minutes. Discharge coordination time: Greater than 30 minutes Quality: Safe Use of Opioids Does Pt have an Active Cancer Diagnosis on the Problem List?: No Quality: Stroke Does the patient have a stroke diagnosis?: No Physical Exam Vital Signs: Vital Signs: Last Vital Signs Temp 97.3 F 01/07/23 07:38 Pulse 80 01/07/23 07:38 Resp 20 01/07/23 07:38 BP 121/65 01/07/23 07:38 Pulse Ox 97 01/07/23 07:38 O2 Del Method Room Air 01/07/23 07:38 BMI result Body Mass Index 22.9 Const: General: comfortable and no acute distress Orientation/consciousness: patient oriented x3 HEENT: Other: Unremarkable Head: Yes normal to inspection Neck: Neck: Yes normal visual inspection Chest: Chest palpation & inspection: normal inspection of the chest Resp: Auscultation: clear to auscultation bilaterally Cardio: Palpation: normal PMI Heart sounds: S1 normal heart sound present, S2 normal heart sound present, no gallops, Murmur heart sound present systolic III/ and at the right sternal border and no rubs GI: Palpation (GI): Soft to palpation Back/Spine/Pelvis: Other: unremarkable Skin: General skin exam: no rashes or lesions noted Neuro: General: patient oriented x3 Extrem: General: Yes normal to inspection Psych: Mental Status: mental status grossly normal Discharge Plan Discharge Anticipated Discharge Date/Time: 01/07/23 10:33 Patient Disposition: Xfer Acute Care Hospital Discharge Diagnosis: severe Referrals: Physician,Unknown J [Primary Care Provider] - 1 Week Discharge Medications: Continued furosemide 40 mg Tablet 40 mg PO DAILY losartan 25 mg Tablet 25 mg PO DAILY pantoprazole 40 mg Tablet,Delayed Release (Dr/Ec) 40 mg PO DAILY potassium chloride 20 mEq Tablet,Er Particles/Crystals 20 meq PO DAILY acetaminophen [Tylenol Extra Strength] 500 mg Tablet 500 mg PO BEDTIME melatonin 5 mg Tablet 5 mg PO BEDTIME multivitamin,gk-ywdh-Zj-FA-min Tablet 1 tab PO DAILY nitroglycerin 0.4 mg Tablet, Sublingual 0.4 mg SUBLINGUAL ONCE PRN (Reason: Chest Pain) Rx Instructions: Administered once, No relief, call 911 calcium carbonate 500 mg calcium (1,250 mg) Tablet,Chewable 1,000 mg PO Q8H PRN (Reason: Indigestion) Discharge Orders: Discharge Order (Routine); Ordered 01/07/23 Ordered By: Tavon Akbar Diet: Advance to usual diet Activity on Discharge: As tolerated Stand Alone Forms: Patient Portal Discharge page Care Plan Goals: manage as Health Concerns: as Plan of Treatment: [facility] Assessment: see above
--- NOTE | 2023-01-07 10:42 | PM.PNCARD ---
Subjective Subjective Date of Service: 01/07/23 Interval history: She states she is doing okay. No new complaints. Review of Systems Review of Systems Yes all other systems are reviewed and are negative Constitutional: Reports as per HPI and Reports no additional constitutional complaints Eyes: Reports as per HPI and Denies no additional eye complaints Denies system reviewed and no additional complaints, except as documented and Reports as per HPI Cardiovascular: Reports as per HPI, Reports no additional cardiovascular complaints, Denies acrocyanosis, Denies cool extremities, Denies chest pain, Denies leg edema, Denies lightheadedness, Denies palpitations and Denies dyspnea Respiratory: Reports as per HPI, Denies no additional respiratory complaints and Denies dyspnea Gastrointestinal: Reports as per HPI and Denies no additional gastrointestinal complaints Genitourinary: Reports as per HPI Musculoskeletal: Reports no additional musculoskeletal complaints and Reports as per HPI Skin/Breast: Reports system reviewed and no additional complaints, except as docu Reports system reviewed and no additional complaints, except as documented and Reports as per HPI Psychiatric: Reports no additional psychiatric complaints and Reports as per HPI Endocrine: Reports no additional endocrine complaints, Reports as per HPI and Denies palpitations Hematologic/Lymphatic: Reports no additional hematologic/lymphatic complaints and Reports as per HPI Allergic/Immunologic: Reports no additional allergic/immunologic complaints and Reports as per HPI Physical Exam Vital Signs: Last Vital Signs Temp 97.3 F 01/07/23 07:38 Pulse 80 01/07/23 07:38 Resp 20 01/07/23 07:38 BP 121/65 01/07/23 07:38 Pulse Ox 97 01/07/23 07:38 O2 Del Method Room Air 01/07/23 07:38 BMI result Body Mass Index 22.9 Const General: comfortable and no acute distress Orientation/consciousness: patient oriented x3 HEENT Other: Unremarkable Head: Yes normal to inspection Neck Neck: Yes normal visual inspection Chest Chest palpation & inspection: normal inspection of the chest Resp Auscultation: clear to auscultation bilaterally Cardio Palpation: normal PMI Heart sounds: S1 normal heart sound present, S2 normal heart sound present, no gallops, Murmur heart sound present systolic III/ and at the right sternal border and no rubs GI Palpation (GI): Soft to palpation Back/Spine/Pelvis Other: unremarkable Skin General skin exam: no rashes or lesions noted Neuro General: patient oriented x3 Extrem General: Yes normal to inspection Psych Mental Status: mental status grossly normal Objective Labs and Meds 01/06/23 06:29 01/06/23 06:29 Progress Note: A&P Assessment and plan (1) Aortic valve stenosis, nonrheumatic: Status: Acute (2) Mitral stenosis: Status: Acute (3) Cognitive impairment: Status: Acute Plan On the echocardiogram, LVEF is preserved. There is very severe aortic stenosis with a peak velocity of 5.5 m/sec. Peak gradient is 129 mm Hg with a mean of 76 mm Hg. Valve area of about 0.4 sq cm. There is also severe mitral annular calcification and severe mitral stenosis with a mean gradient of 14 mm Hg. Severe pulmonary hypertension. Overall, she has further workup. Will start with a diagnostic cardiac catheterization and the need to assess for surgical AVR/MVR versus transcatheter options. There is question of cognitive impairment, but psychiatric just seen her and stated okay to proceed. Discussed with patient today and she able to somewhat understand. Discussed with hospitalist. Will transfer to [facility] today. Time Spent With Patient Time: Total time managing care of this patient today 45 minutes. This includes time spent in review of chart, laboratory data, imaging studies, review of telemetry, counseling patient, discussion with hospitalist, RN, arranging patient transfer, documentation, coordination of care. Progress Note: Quality Stroke Does the patient have a stroke diagnosis?: No Procedures Date of Service Date of Service: 01/07/23
--- NOTE | 2023-01-07 10:51 | MHC.CM.PN ---
PT TO TRANSFER TO [facility] INFORMED
[2023-01-07 11:23] VITALS: BP 133/65; PULSE 82; RESP 20; TEMP 36.6; O2SAT 96
== END 2023-01-07 14:58 | disposition short-term general hospital (02) ==
LOC: HO.ED 21:02 → HO.EDOVER 22:25 → HO.IMC 22:31
PROVIDERS: Admitting Provider Student in an Organized Health Care Education/Training Program; Emergency Provider Student in an Organized Health Care Education/Training Program; PCP Internal Medicine; Visit Provider Internal Medicine
DX: I25.10 Atherosclerotic heart disease of native coronary artery without angina pectoris (principal); I35.0 Nonrheumatic aortic (valve) stenosis; I27.20 Pulmonary hypertension, unspecified; R07.9 Chest pain, unspecified; R01.1 Cardiac murmur, unspecified; I10 Essential (primary) hypertension; R41.89 Other symptoms and signs involving cognitive functions and awareness; K21.9 Gastro-esophageal reflux disease without esophagitis; Z79.899 Other long term (current) drug therapy; Z20.822 Contact with and (suspected) exposure to COVID-19
CPT/HCPCS: 36415; 71045; 80048; 80076; 83690; 83880; 84484; 85025; 85610; 85730; 87635; 93005; 93306; 96372; 96374; 99222; 99285; J1650; J1940; Q9957

== ENCOUNTER 2023-02-06 18:52 | Emergency (ER) | payer MEDICARE, MEDICAID, SELFPAY ==
--- NOTE | 2023-02-06 | ECG_ITS ---
Test Reason : CHEST PAIN/SOB Blood Pressure : / mmHG Vent. Rate : 073 BPM Atrial Rate : 073 BPM P-R Int : 162 ms QRS Dur : 072 ms QT Int : 394 ms P-R-T Axes : 073 049 051 degrees QTc Int : 434 ms Normal sinus rhythm Normal ECG When compared with ECG of 05-JAN-2023 19:22, Premature atrial complexes are no longer Present Referred By: Generic ED Physician Electronically Signed By:Jeremy Roth
--- NOTE | ~2023-02-06 | XR_ITS ---
EXAMINATION: CHEST 2 VIEWS CLINICAL INFORMATION: chest pain. COMPARISON: 01/05/2023. TECHNIQUE: AP frontal and lateral views of the chest obtained FINDINGS: Lungs mildly hypoexpanded. Tiny bilateral pleural effusions are seen. There is central vascular prominence and mild peribronchial cuffing. Component of mild pulmonary edema cannot be excluded although there are chronic changes here as well. Cardiac silhouette within normal limits for size. Vascular calcification in aorta. No acute bony abnormality XR/XR chest 2V IMPRESSION: Tiny effusions. Central vascular prominence and peribronchial cuffing. Component of acute on chronic mild pulmonary edema cannot be excluded although there are chronic changes here as well.
[2023-02-06 19:15] VITALS: BP 112/71; PULSE 73; RESP 18; TEMP 36.6; O2SAT 97; BMI 28.2
--- NOTE | 2023-02-06 19:16 | ED_ITS ---
HPI - Chest Pain General Chief Complaint: Chest Pain Stated Complaint: Chest pain/ Time Seen by Provider: 02/06/23 20:36 Source: patient Mode of arrival: EMS Limitations: no limitations History of Present Illness HPI narrative: Patient is 67 years old female with history of asthma, hypertension, hyperlipidemia, GERD, hypothyroidism psoriasis with psoriatic arthritis, severe aortic and mitral stenosis, CHF was transferred to [facility] on 01/07 for acute CHF. At [facility] patient underwent cardiac catheterization on 01/15 and found to have proximal mid LAD lesion 80% mid LAD 75% diagonal 80% OM 131% and mid RCA 95% normal right-sided filling pressure and moderate to severe pulmonary hypertension patient declined temporary reversing overedge sewer still debating about CABG and MVR/AVR versus TAVR + PCI patient went to jail discharge from there today earlier to her friend's house movement patient read friend's house call the ambulance for chest pain which she says is going on since she was discharged from the hospital on 01/16 Related Data Home Medications Medication Instructions Recorded Confirmed acetaminophen 500 mg tablet 500 mg PO BEDTIME 12/14/22 01/06/23 (Tylenol Extra Strength) furosemide 40 mg tablet 40 mg PO DAILY 12/14/22 01/06/23 losartan 25 mg tablet 25 mg PO DAILY 12/14/22 01/06/23 melatonin 5 mg tablet 5 mg PO BEDTIME 12/14/22 01/06/23 multivitamin,qx-bqnn-Am-FA-min 1 tab PO DAILY 12/14/22 01/06/23 nitroglycerin 0.4 mg sublingual 0.4 mg sublingual ONCE PRN Chest 12/14/22 07/02/21 tablet Pain pantoprazole 40 mg tablet,delayed 40 mg PO DAILY 12/14/22 01/06/23 release potassium chloride 20 mEq 20 meq PO DAILY 12/14/22 01/06/23 tablet,extended release(part/cryst) calcium carbonate 500 mg calcium 1,000 mg PO Q8H PRN Indigestion 01/06/23 01/06/23 (1,250 mg) chewable tablet Allergies Allergy/AdvReac Type Severity Reaction Status Date / Time cephalexin Allergy Unknown Rash Verified 02/06/23 19:22 nisoldipine [Sular] Allergy Unknown Rash Verified 02/06/23 19:22 penicillin V Allergy Unknown Rash Verified 02/06/23 19:22 Erythromycin Allergy Unknown Rash Uncoded 02/06/23 19:22 Review of Systems Review of Systems: Yes all other systems are reviewed and are negative [facility] Past Medical History Medical History CAD (coronary artery disease) Essential hypertension Gastroesophageal reflux disease Family History Family History (Updated 01/06/23 @ 10:37 by Demian Addison MD) Sister CAD (coronary artery disease) Social History Social History Household Members: None Housing: Homeless Housing Other:: Pt states homeless, coming from [facility] Do you presently have visiting nurse or other home services: No Alcohol intake: never Patient Tobacco Use Status: Former Tobacco user Smoked in Last 30 Days: No e-Cigarette/Vaping Use: Never Used Use of substances other than those prescribed or required for medical reasons: No Advance Directives: Yes Advance Directives on File: Yes Advance Directives Date on File: 12/14/22 service: No Physical Exam Vital Signs: Vital Signs: Last Vital Signs Temp 99.0 F 02/07/23 01:15 Pulse 88 02/07/23 01:15 Resp 15 02/07/23 01:15 BP 121/64 02/07/23 01:15 Pulse Ox 100 02/07/23 01:15 O2 Del Method Room Air 02/07/23 01:15 BMI result Body Mass Index 28.2 Appearance: Alert. Oriented X3. No acute distress. Eyes: PERRLA, No Nystagmus ENT: Pharynx normal. Oral Mucosa moist Neck: Normal inspection. Neck supple. CVS: Normal heart rate and rhythm systolic ejection murmur at base. Pulses normal. Respiratory: No respiratory distress. Equal air entry bilateral, no wheezing/rales/rhonchi Abdomen: Soft and nontender. Bowel sounds are present, no mass palpable, no CVA tenderness Skin: Skin warm and dry. Normal skin color. Normal skin turgor. Extremities: No lower extremity edema. No calf tenderness Neuro: Oriented X 3. No motor deficit. No sensory deficit.No cerebellar signs , cranial nerves II-XII intact Course Course Course Narrative: RME - 67 yo female with history of cognitive impairment, HTN, GERD, aortic valve stensosis, CAD s/p stent placement at [facility] a few weeks ago who presents to the ER for evaluation of acute onset of substernal chest pain described as a tightness and squeezing type pain that started at 430pm today right after she got discharged from acute rehab. Also reporting metallic taste in the mouth. Friend reporting some AMS as well, seems off. Plan: cardiac workup Medications Administered Discontinued Medications Generic Name Dose Route Start Last Admin Trade Name Freq PRN Reason Stop Dose Admin Nitrofurantoin Macrocrystals 100 mg 02/06/23 21:58 02/06/23 22:19 Nitrofurantoin Monohyd/M-Cryst 100 Mg Capsule PO 02/06/23 21:59 100 mg ONCE ONE Administration Medical Decision Making Medical Decision Making [facility] Narrative: Patient atypical chest pain with recent cardiac catheterization no acute ischemic changes no acute delta change in high sensitive troponin case discussed with patient's family was saying that patient unable to be managed at home patient was just released from the jail requesting for the patient to go back to jail patient ambulatory in the ED without any chest pain relaxed will get case management involved for placement patient urine shows increased WBCs nitrite negative will treat her with Macrobid patient denies any urinary symptoms Differential Diagnosis Differential Diagnoses: The differential diagnosis associated with the presentation includes ACS/non STEMI/anxiety/UTI Lab Data [facility] Lab Attestation statement: I reviewed the patient's lab results. 02/06/23 19:41 02/06/23 19:41 Labs: Lab Results 02/06/23 02/06/23 02/06/23 Range/Units 19:41 19:41 19:41 WBC 6.3 (4.8-10.8) X10*3/uL RBC 3.74 L (4.20-5.50) X10*6/uL Hgb 10.4 L (12.0-16.0) g/dl Hct 31.6 L (37.0-47.0) % MCV 84.5 (80.0-98.0) fL MCH 27.8 (27.0-33.0) pg MCHC 32.9 (31.0-35.0) g/dl RDW 13.0 (11.0-16.0) % Plt Count 287 (160-400) X10*3/uL MPV 10.0 (9.4-12.3) fL Immature Gran % (Auto) 0.3 (0.0-0.4) % Neut % (Auto) 63.2 (45-73) % Lymph % (Auto) 23.9 (20-40) % Garland % (Auto) 10.0 (2-11) % Eos % (Auto) 2.1 (0-4) % Baso % (Auto) 0.5 (0-2) % Lymph # (Auto) 1.5 (1.2-4.9) X10*3/uL Garland # (Auto) 0.6 (0.1-1.2) X10*3/uL Eos # (Auto) 0.1 (0.0-0.4) X10*3/uL Baso # (Auto) 0.0 (0.0-0.2) X10*3/uL Abs Immat Gran (auto) 0.02 (0.00-0.03) X10*3/uL Absolute Neuts (auto) 4.0 (2.0-8.3) x10*3/uL Absolute Nucleated RBC 0.000 (0.0-0.012) X10*3/uL Nucleated RBC % (auto) 0.0 (0.0-0.2) /100WBC PT 14.2 H (11.1-13.3) SEC INR 1.2 H (0.9-1.1) APTT 34.1 D (26.0-36.4) SEC Sodium 145 (135-145) mmol/L Potassium 4.4 (3.3-5.1) mmol/L Chloride 107 (96-108) mmol/L Carbon Dioxide 29 (22-29) mmol/L Anion Gap 13 (12-20) BUN 17 H (9-16) mg/dL Creatinine 0.56 (0.5-1.4) mg/dL Estim Creat Clear Calc 83.4 Estimated GFR > 60 Random Glucose 89 (60-115) mg/dL Calcium 9.1 (8.4-10.2) mg/dL Magnesium 1.7 (1.6-2.6) mg/dL Total Bilirubin 0.9 (0.0-1.0) mg/dL Direct Bilirubin 0.4 (0.0-0.5) mg/dL AST 24 (5-31) U/L ALT 23 (0-31) U/L Alkaline Phosphatase 98 (39-117) U/L Troponin I High Sens (<3.5-17.0) ng/L B-Natriuretic Peptide (<100) pg/mL Total Protein 6.5 (6.5-8.0) g/dL Albumin 3.4 L (3.5-5.0) g/dL Urine Color Urine Appearance Urine pH (5.0-9.0) Ur Specific [place] (1.005-1.025) Urine Protein (Neg-Trace) mg/dL Urine Glucose (UA) (Negative) mg/dL Urine Ketones (Negative) mg/dL Urine Blood (Negative) Urine Nitrite (Negative) Ur Leukocyte Esterase (Negative) Urine RBC (0-2) /HPF Urine WBC (0-5) /HPF Ur Squamous Epith Cells (0-2) /HPF Urine Bacteria (None Seen) Hyaline Casts (0-2) /LPF 02/06/23 02/06/23 02/06/23 Range/Units 19:41 19:41 19:54 WBC (4.8-10.8) X10*3/uL RBC (4.20-5.50) X10*6/uL Hgb (12.0-16.0) g/dl Hct (37.0-47.0) % MCV (80.0-98.0) fL MCH (27.0-33.0) pg MCHC (31.0-35.0) g/dl RDW (11.0-16.0) % Plt Count (160-400) X10*3/uL MPV (9.4-12.3) fL Immature Gran % (Auto) (0.0-0.4) % Neut % (Auto) (45-73) % Lymph % (Auto) (20-40) % Garland % (Auto) (2-11) % Eos % (Auto) (0-4) % Baso % (Auto) (0-2) % Lymph # (Auto) (1.2-4.9) X10*3/uL Garland # (Auto) (0.1-1.2) X10*3/uL Eos # (Auto) (0.0-0.4) X10*3/uL Baso # (Auto) (0.0-0.2) X10*3/uL Abs Immat Gran (auto) (0.00-0.03) X10*3/uL Absolute Neuts (auto) (2.0-8.3) x10*3/uL Absolute Nucleated RBC (0.0-0.012) X10*3/uL Nucleated RBC % (auto) (0.0-0.2) /100WBC PT (11.1-13.3) SEC INR (0.9-1.1) APTT (26.0-36.4) SEC Sodium (135-145) mmol/L Potassium (3.3-5.1) mmol/L Chloride (96-108) mmol/L Carbon Dioxide (22-29) mmol/L Anion Gap (12-20) BUN (9-16) mg/dL Creatinine (0.5-1.4) mg/dL Estim Creat Clear Calc Estimated GFR Random Glucose (60-115) mg/dL Calcium (8.4-10.2) mg/dL Magnesium (1.6-2.6) mg/dL Total Bilirubin (0.0-1.0) mg/dL Direct Bilirubin (0.0-0.5) mg/dL AST (5-31) U/L ALT (0-31) U/L Alkaline Phosphatase (39-117) U/L Troponin I High Sens 22.3 H (<3.5-17.0) ng/L B-Natriuretic Peptide 424 H (<100) pg/mL Total Protein (6.5-8.0) g/dL Albumin (3.5-5.0) g/dL Urine Color Dark Yellow Urine Appearance Clear Urine pH 5.0 (5.0-9.0) Ur Specific [place] 1.020 (1.005-1.025) Urine Protein Trace (Neg-Trace) mg/dL Urine Glucose (UA) Negative (Negative) mg/dL Urine Ketones Trace (Negative) mg/dL Urine Blood Negative (Negative) Urine Nitrite Negative (Negative) Ur Leukocyte Esterase Moderate (2+) H (Negative) Urine RBC 3-5 H (0-2) /HPF Urine WBC 21-50 H (0-5) /HPF Ur Squamous Epith Cells 3-5 (0-2) /HPF Urine Bacteria Trace (None Seen) Hyaline Casts 6-10 (0-2) /LPF Discharge Plan Discharge Clinical Impression: Chest pain, Aortic valve stenosis, nonrheumatic, Acute UTI Patient Disposition: Still a Patient Prescriptions: No Action furosemide 40 mg Tablet 40 mg PO DAILY losartan 25 mg Tablet 25 mg PO DAILY pantoprazole 40 mg Tablet,Delayed Release (Dr/Ec) 40 mg PO DAILY potassium chloride 20 mEq Tablet,Er Particles/Crystals 20 meq PO DAILY acetaminophen [Tylenol Extra Strength] 500 mg Tablet 500 mg PO BEDTIME melatonin 5 mg Tablet 5 mg PO BEDTIME multivitamin,oq-svcx-Ox-FA-min Tablet 1 tab PO DAILY nitroglycerin 0.4 mg Tablet, Sublingual 0.4 mg SUBLINGUAL ONCE PRN (Reason: Chest Pain) Rx Instructions: Administered once, No relief, call 911 calcium carbonate 500 mg calcium (1,250 mg) Tablet,Chewable 1,000 mg PO Q8H PRN (Reason: Indigestion)
[2023-02-06 19:45] LABS: MANUAL DIFF FLAG NO
[2023-02-06 19:50] LABS: Basophils Percent Auto 0.5 % (0-2); Eosinophils Absolute Auto 0.1 X10*3/uL (0.0-0.4); Eosinophils Percent Auto 2.1 % (0-4); Hematocrit 31.6 % (37.0-47.0); Hemoglobin 10.4 g/dl (12.0-16.0); Imm Gran Abs Auto 0.02 X10*3/uL (0.00-0.03); Imm Gran Pct Auto 0.3 % (0.0-0.4); Lymphocytes Absolute Auto 1.5 X10*3/uL (1.2-4.9); Lymphocytes Percent Auto 23.9 % (20-40); Mean Corpuscular HGB Conc 32.9 g/dl (31.0-35.0); Mean Corpuscular Hemoglobin 27.8 pg (27.0-33.0); Mean Corpuscular Volume 84.5 fL (80.0-98.0); Monocytes Absolute Auto 0.6 X10*3/uL (0.1-1.2); Neutrophils Percent Auto 63.2 % (45-73); Platelet Count 287 X10*3/uL (160-400); Red Blood Count 3.74 X10*6/uL (4.20-5.50); White Blood Count 6.3 X10*3/uL (4.8-10.8)
[2023-02-06 19:58] LABS: INTERNATIONAL NORM RATIO 1.2 (0.9-1.1); Prothrombin Time 14.2 SEC (11.1-13.3)
[2023-02-06 20:00] LABS: Partial Thromboplastin Time 34.1 SEC (26.0-36.4)
[2023-02-06 20:05] VITALS: PULSE 78; RESP 17; O2SAT 97
[2023-02-06 20:06] LABS: Appearance Urine Clear; Color Urine Dark Yellow; Glucose Urine UA Negative (Negative); Leukocyte Esterase Urine Moderate (2+) (Negative); Nitrite Urine Negative (Negative); UMIC TRIGGER UACC YES; Urine Blood Negative (Negative); Urine Ketones Trace mg/dL (Negative); Urine Protein Trace mg/dL (Neg-Trace)
[2023-02-06 20:08] VITALS: PULSE 71
--- NOTE | 2023-02-06 20:09 | PC.NURSE ---
pt brought back form waiting room, changed over to gown and placed on engine monitor, reporting 6/10 cardiac pain in mid chest. Awaiting blood results at this time. EKG shows normal sinus rhythm as well as engine monitor at this time
[2023-02-06 20:11] LABS: Alanine Aminotransferase 23 U/L (0-31); Albumin Level 3.4 g/dL (3.5-5.0); Alkaline Phosphatase 98 U/L (39-117); Anion Gap 13 (12-20); Aspartate Amino Transferase 24 U/L (5-31); Bilirubin Direct 0.4 mg/dL (0.0-0.5); Bilirubin Total 0.9 mg/dL (0.0-1.0); Blood Urea Nitrogen 17 mg/dL (9-16); Calcium 9.1 mg/dL (8.4-10.2); Carbon Dioxide 29 mmol/L (22-29); Chloride 107 mmol/L (96-108); Creatinine Clr Calc Pharmacy 83.4; Estimated Glomerular Filt Rate > 60; Glucose Random 89 mg/dL (60-115); Magnesium 1.7 mg/dL (1.6-2.6); Potassium 4.4 mmol/L (3.3-5.1); Sodium 145 mmol/L (135-145); Total Protein 6.5 g/dL (6.5-8.0)
[2023-02-06 20:13] VITALS: BP 117/43; PULSE 73; RESP 28; TEMP 36.8; O2SAT 94
[2023-02-06 20:16] LABS: B Type Natriuretic Peptide 424 pg/mL (<100)
[2023-02-06 20:17] LABS: Troponin-I High Sensitivity 22.3 ng/L (<3.5-17.0)
[2023-02-06 20:19] LABS: Bacteria Urine Trace (None Seen); UACC Culture Trigger YES; WBC Urine 21-50 /HPF (0-5)
[2023-02-06 20:20] VITALS: BP 123/53; PULSE 74; RESP 22; O2SAT 96
--- NOTE | 2023-02-06 20:43 | PC.NURSE ---
MD Doyle aware of pts low BP, no new orders at this time
[2023-02-06] MEDS: Nitrofurantoin Monohyd/M-Cryst 100 MG CAPSULE PO (22:19)
[2023-02-07] VITALS (7 sets, daily range): BP systolic 99–151; BP diastolic 55–81; PULSE 85–124; RESP 15–20; TEMP 36.5–37.2; O2SAT 90–100
--- NOTE | 2023-02-07 01:14 | PC.NURSE ---
pt verbalizes understanding that she will be here overnight for CM/PT consult in morning. Pt called friend to discuss this with her. Pt is now resting comfortably, getting ready for sleep. Offers no complaints at this time, respirations even and unlabored, skin pwd, absence of chest pain
--- NOTE | 2023-02-07 02:42 | PC.NURSE ---
Report called to ANUPAM Lazo in overflow
[2023-02-07] MEDS: Nitrofurantoin Monohyd/M-Cryst 100 MG CAPSULE PO ×2 (08:18→20:29)
--- NOTE | 2023-02-07 09:13 | PC.NURSE ---
Resumed care of patient this morning, hygiene care provided. She is a/ox4. Friend called who is taking care of her, talked with staff about current concerns she has with patient being home alone, as she is concerned she can not take care of herself, and that she is not safe at home alone. CM involved. Pt is able to ambulate to BR with assist. All needs met at this time.
--- NOTE | 2023-02-07 12:20 | MHC.CM.ED ---
Received case management consult overnight. Patient came to the ER due to chest pain. Work up essentially negative. Physical therapy eval completed. No services indicated at this time. Received telephone call from patient's friend, Mechelle. Patient was at [facility] for an extended period of time. Patient ended up getting a stent placed at [facility] and was discharged to [facility]. [facility] felt patient was at baseline and was ready for discharge. Patient is estranged from her children. Mechelle decided to help patient out and have her discharge to her home. Patient required extensive assistance with ADL's. Mechelle was not prepared for this. Mechelle is in the process of getting patient her own apartment and assistance at home. But this will not be available before March. Mechelle does not want patient to go to [facility] or [facility]. Referral broadcasted at this time except to [facility] and [facility]. Met with patient in regards to discharge planning. Patient has not receive any Covid vaccines. New HCP completed, signed and witnessed. Original given to patient. Copy placed in chart. Continue to monitor for d/c needs.
[2023-02-07 17:31] LABS: COVID-19 Test Negative (Negative); IDNOW Serial# 08D9AD1C
--- NOTE | 2023-02-07 18:35 | MHC.EDTECH ---
provided with yellow jello per patient request. walked to the bathroom with walker.
--- NOTE | 2023-02-07 19:16 | PHA.MEDREC ---
Pharmacy Consult ? Medication Reconciliation Pharmacy has completed the medication reconciliation. Machelle attempted to contact Mechelle this morning. Mechelle was suppose to call back but never did. I contact [facility] for a discharge medication list to complete med rec. Miryam Yates, PharmD
[2023-02-07] MEDS: Nystatin Powder 15 GM BOTTLE 1 APPL TOPICAL (21:31)
[2023-02-07] MEDS: Melatonin 3 MG TABLET 6 MG PO (21:31)
[2023-02-08 05:41] VITALS: BP 136/68; PULSE 89; RESP 18; TEMP 36.4; O2SAT 95
[2023-02-08] MEDS: Omeprazole 20 MG CAPSULE.DR PO (05:52)
--- NOTE | 2023-02-08 06:52 | PC.NURSE ---
Assumed care of pt 1900 on 02/07. Pt seen in ED overflow, awaiting rehab/placement. Pt is A&Ox4. VSS. Denies pain, refuses tylenol. Executive Consultant spoke with pharmacy, confirmed med list was done and MD notified with request for home med orders. Scheduled metoprolol held per MD for soft pressures 90's/50's (map 70s). Pt asymptomatic. Denies pain. +pp/cms. Breathing is even and unlabored without distress. Continues on macrobid for UTI. Will continue to monitor for remainder of shift.
[2023-02-08] MEDS: Losartan Potassium 25 MG TABLET PO (08:31)
[2023-02-08] MEDS: Nitrofurantoin Monohyd/M-Cryst 100 MG CAPSULE PO ×2 (08:31→22:38)
[2023-02-08] MEDS: Aspirin 81 MG TAB.CHEW PO (08:31)
[2023-02-08] MEDS: Atorvastatin Calcium 80 MG TABLET PO (08:31)
[2023-02-08] MEDS: Metoprolol Tartrate 25 MG TABLET PO ×2 (08:31→22:37)
[2023-02-08] MEDS: Multivitamin TABLET 1 TAB PO (08:31)
[2023-02-08] MEDS: Nystatin Powder 15 GM BOTTLE 1 APPL TOPICAL (08:32)
[2023-02-08] MEDS: Furosemide 40 MG TABLET PO (08:33)
[2023-02-08] MEDS: Potassium Chloride ER 20 MEQ TAB.ER.PRT PO (08:33)
[2023-02-08] MEDS: DULoxetine HCl 30 MG CAPSULE.DR PO (09:15)
[2023-02-08 12:00] VITALS: BP 117/68; PULSE 78; RESP 16; TEMP 36.6; O2SAT 93
--- NOTE | 2023-02-08 12:59 | MHC.CM.ED ---
Addendum entered by Lisa Scales 02/08/23 16:22: [facility] PASRR Level 1 submitted to [facility] for Level 2. Will need MDS completed and sent to [facility]. Addendum entered by Lisa Scales 02/08/23 14:12: Received return telephone call from Mechelle. [facility] [place] in [place] is Mechelle's first choice. Facility made aware. Original Note: Patient remains in ER overflow. Referral already broadcasted within 25 miles of patient's residence. No bed offer made. Referral broadcasted within 50 miles of patient's residence. [facility], [facility], [facility], and [facility] are able to offer a bed at this time. Attempted to speak with friend/HCP, Mechelle, via telephone at [phone] to discuss d/c options. Patient is her own person. However, Mechelle is a huge support to patient and will be visiting patient. Left message requesting return telephone call. Continue to monitor for d/c needs.
[2023-02-08 14:42] VITALS: BP 137/66; PULSE 77; RESP 14; TEMP 36.6; O2SAT 96
--- NOTE | 2023-02-08 16:16 | PC.NURSE ---
Assisted patient to make the call to speak with Veena as requested by Lisa Scales,patient is on the phone at present.
--- NOTE | 2023-02-08 17:45 | PC.NURSE ---
report given to ED RN ,patient is being transferred to ED via wc,by ENGINEERING PROGRAM ANALYST.Patient alert and oriented ,has no complaints
--- NOTE | 2023-02-08 18:50 | PC.NURSE ---
patient sitting at bedside, with her walker within reach. sjows no signs of distress, respirations are equal and unlabored
[2023-02-08 19:16] VITALS: BP 145/67; PULSE 91; RESP 18; TEMP 36.8; O2SAT 96
[2023-02-08 22:33] VITALS: BP 140/71; PULSE 86; RESP 18; TEMP 36.6; O2SAT 94
[2023-02-08] MEDS: Mirtazapine 7.5 MG TABLET PO (22:38)
[2023-02-08] MEDS: Acetaminophen 325 MG TABLET 650 MG PO (22:40)
[2023-02-09 06:35] VITALS: BP 138/53; PULSE 75; RESP 18; TEMP 36.5; O2SAT 94
--- NOTE | 2023-02-09 06:57 | PC.NURSE ---
Late entry: Pt A&Ox3, Pt sitting in chair in hallway, denies any pain, tearful about going into a different rehab facility, pt reassured. Hospital bed moved into room for comfort. Pt given PO fluids per request. Meds given as documented. Pt appeared to be sleeping most of the night, no apparent distress noted. Pt refused her omeprazole in the AM.
[2023-02-09] MEDS: Multivitamin TABLET 1 TAB PO (08:55)
[2023-02-09] MEDS: Losartan Potassium 25 MG TABLET PO (08:55)
[2023-02-09] MEDS: Aspirin 81 MG TAB.CHEW PO (08:55)
[2023-02-09] MEDS: Nitrofurantoin Monohyd/M-Cryst 100 MG CAPSULE PO (08:56)
[2023-02-09] MEDS: Metoprolol Tartrate 25 MG TABLET PO (08:56)
[2023-02-09] MEDS: Atorvastatin Calcium 80 MG TABLET PO (08:56)
[2023-02-09] MEDS: DULoxetine HCl 30 MG CAPSULE.DR PO (08:56)
[2023-02-09] MEDS: Potassium Chloride ER 20 MEQ TAB.ER.PRT PO (08:56)
[2023-02-09] MEDS: Furosemide 40 MG TABLET PO (08:56)
--- NOTE | 2023-02-09 10:35 | MHC.CM.ED ---
Addendum entered by Lisa Scales 02/09/23 11:15: Patient can leave ER at 2pm. [facility] booked. [facility] with chart. Patient, Karey Min RN and Carley TORRES aware. Addendum entered by Lisa Scales 02/09/23 11:02: Received return telephone call from Mechelle. Mechelle accepts bed at [place]. Patient aware and agreeable. MDS completed, [facility] Original Note: Patient remains in ER. [facility] is not able to offer a bed. [facility] is reviewing to see if they are able to offer a bed. Attempted to speak with patient's friend/HCP, Mechelle, via telephone at [phone]. Left message requesting return telephone call. Continue to monitor for d/c needs.
[2023-02-09 14:00] VITALS: BP 126/58; PULSE 97; RESP 14; TEMP 36.8; O2SAT 94
== END 2023-02-09 17:08 | disposition skilled nursing facility (03) ==
PROVIDERS: Physician Assistant; Emergency Provider Internal Medicine; PCP Internal Medicine
DX: R07.89 Other chest pain (principal); N39.0 Urinary tract infection, site not specified; I25.10 Atherosclerotic heart disease of native coronary artery without angina pectoris; R06.02 Shortness of breath; R26.2 Difficulty in walking, not elsewhere classified; Z79.899 Other long term (current) drug therapy
CPT/HCPCS: 36415; 71046; 80048; 80076; 81001; 83735; 83880; 84484; 85025; 85610; 85730; 87086; 87635; 93005; 97161; 99285

== ENCOUNTER → 2023-02-06 19:07 | Outpatient (BNV) | payer MEDICARE, MEDICAID, SELFPAY | PROVIDERS: Emergency Provider Internal Medicine; PCP Internal Medicine; Visit Provider Internal Medicine Cardiovascular Disease | DX: R07.9 Chest pain, unspecified (principal); R06.02 Shortness of breath | CPT/HCPCS: 93010 ==